=== PATIENT | male | born 1940 | race American Indian/Alaskan Native ===

== ENCOUNTER 2017-03-25 06:15 | Inpatient (IN) | payer OTHER ==
[2017-03-25 06:25] VITALS: BMI 32.3
--- NOTE | 2017-03-25 07:09 | PDOC ---
History of Present Illness - General Chief Complaint: Blood Sugar Problem Stated Complaint: LOW BLOOD SUGAR Time Seen by Provider: 03/25/17 07:09 - History of Present Illness Initial Comments: 03/25/17 07:11 Mr. Sorenson is a 76 yo male with pmh of DM, 1 cardiac stent, HTN, and hypercholesterolemia BIBA after he was noted by family to have snoring respirations this morning. attempted to wake him up but was unable to. Family took his blood sugar at home and noted it was 34. EMS was called and administered oral glucose - blood sugar was noted to be approximately 200 following this and patient was brought to the emergency room. Patient currently responding appropriately and at baseline per family - says that he feels fine and has no complaints. Patient takes insulin and sulfonylureas for his diabetes. The patient denies chest pain, shortness of breath, headache and dizziness. Denies fever, chills, nausea, vomit, diarrhea and constipation. Denies dysuria, frequency, urgency and hematuria. Allergies: NKDA Past History - Past Medical History Allergies/Adverse Reactions: Allergies Allergy/AdvReac Type Severity Reaction Status Date / Time No Known Allergies Allergy Verified 03/25/17 06:24 Home Medications: Ambulatory Orders Aspirin [ASA -] 81 mg PO DAILY 03/26/13 Atorvastatin Ca [Lipitor] 40 mg PO HS 03/26/13 Clopidogrel Bisulfate [Plavix -] 75 mg PO DAILY 03/26/13 Quinapril HCl [Accupril -] 20 mg PO DAILY 03/26/13 Cholecalciferol (Vitamin D3) [Vitamin D3 -] 1,000 unit PO DAILY 12/11/14 Cyanocobalamin [Vitamin B12 -] 100 mcg PO DAILY 12/11/14 Albuterol 2.5/Ipratropium 0.5 [Duoneb -] 1 amp NEB Q4H PRN #30 amp 12/15/14 Budesonide/Formeterol Fumarate [SYMBICORT 80/4.5mcg -] 2 puff IH BID #1 inhaler 12/15/14 Furosemide [Lasix -] 40 mg PO DAILY #30 tablet 12/15/14 Glimepiride [Amaryl -] 4 mg PO DAILY@0700 #30 tablet 12/15/14 Insulin (Novolog 70/30) [Novolog Mix 70/30 Flexpen -] 10 units SQ DAILY@1100 #1 pen 12/15/14 Insulin (Novolog 70/30) [Novolog Mix 70/30 Flexpen -] 30 units SQ ACBK #1 pen Insulin (Novolog 70/30) [Novolog Mix 70/30 Flexpen -] 30 units SQ ACDIN #1 pen 12/15/14 Metoprolol Tartrate [Lopressor -] 50 mg PO DAILY #30 tablet 12/15/14 Prednisone [Deltasone -] 40 mg PO DAILY #14 tablet 12/15/14 Quinapril HCl [Accupril -] 20 mg PO DAILY #30 tablet 12/15/14 Ranitidine HCl [Zantac] 150 mg PO DAILY #14 tablet 12/15/14 Cardiac Disorders: Yes (CAD) COPD: Yes Diabetes: Yes HTN: Yes Hypercholesterolemia: Yes - Surgical History Cardiac Surgery: Yes (STENT X 1) - Family Disease History Family Disease History: Diabetes: Mother - Immunization History Immunization Up to Date: Yes - Suicide/Smoking/Psychosocial Hx Smoking History: Unknown if ever smoked Have you smoked in the past 12 months: No Information on smoking cessation initiated: No Hx Alcohol Use: No Drug/Substance Use Hx: No Substance Use Type: None Hx Substance Use Treatment: No Review of Systems - Review of Systems Comments:: 03/25/17 07:40 GENERAL/CONSTITUTIONAL: No fever or chills. No weakness. HEAD, EYES, EARS, NOSE AND THROAT: No change in vision. No ear pain or discharge. No sore throat. CARDIOVASCULAR: No chest pain or shortness of breath RESPIRATORY: + Snoring respirations as described while sleeping. No cough, wheezing, or hemoptysis. GASTROINTESTINAL: No nausea, vomiting, diarrhea or constipation. GENITOURINARY: No dysuria, frequency, or change in urination. MUSCULOSKELETAL: No joint or muscle swelling or pain. No neck or back pain. SKIN: No rash NEUROLOGIC: No headache, vertigo, loss of consciousness, or change in strength/ sensation. ENDOCRINE: No increased thirst. No abnormal weight change HEMATOLOGIC/LYMPHATIC: No anemia, easy bleeding, or history of blood clots. ALLERGIC/IMMUNOLOGIC: No hives or skin allergy. 03/25/17 08:09 *Physical Exam - Vital Signs Last Vital Signs Temp Pulse Resp BP Pulse Ox 97.6 F 22 159/65 98 03/25/17 06:24 03/25/17 06:24 03/25/17 06:24 03/25/17 06:24 - Physical Exam Comments: 03/25/17 08:10 GENERAL: Awake, alert, and fully oriented, in no acute distress HEAD: No signs of trauma, normocephalic, atraumatic EYES: PERRLA, EOMI, sclera anicteric, conjunctiva clear ENT: Auricles normal inspection, hearing grossly normal, nares patent, oropharynx clear without exudates. Moist mucosa NECK: Normal ROM, supple, no lymphadenopathy, JVD, or masses LUNGS: No distress, speaks full sentences, clear to auscultation bilaterally HEART: Regular rate and rhythm, normal S1 and S2, no murmurs, rubs or gallops, peripheral pulses normal and equal bilaterally. ABDOMEN: Soft, nontender, normoactive bowel sounds. No guarding, no rebound. No masses EXTREMITIES: Normal inspection, Normal range of motion, no edema. No clubbing or cyanosis. NEUROLOGICAL: Cranial nerves II through XII grossly intact. Normal speech, normal gait, no focal sensorimotor deficits SKIN: Warm, Dry, normal turgor, no rashes or lesions noted. ED Treatment Course - LABORATORY CBC & Chemistry Diagram: 03/25/17 07:25 03/25/17 07:25 Medical Decision Making - Medical Decision Making 03/25/17 08:20 Patient is a diabetic who presents post hypoglycemic episode on sulfonylureas. Per family patient may have taken more insulin or skipped a meal last night - patient unable to confirm/deny. Patient currently resting comfortably but due to long acting nature of sulfonylureas will obs. patient to ensure no further hypoglycemic episodes. 03/25/17 09:[address] Rachel - will admit under Ann[facility]. 03/25/17 09:42 *DC/Admit/Observation/Transfer Diagnosis at time of Disposition: Hypoglycemia - Discharge Dispostion Admit: Yes - Referrals - Patient Instructions - Post Discharge Activity
[2017-03-25 07:37] LABS: VENOUS PH 7.29 (7.32-7.42)
[2017-03-25 07:38] LABS: VENOUS BLOOD GAS HCO3 32.3 meq/L (19-25)
[2017-03-25 07:38] LABS: URINE APPEARANCE CLEAR; URINE BILIRUBIN NEGATIVE (NEGATIVE); URINE BLOOD 1+ (NEGATIVE); URINE COLOR LTYELLOW; URINE GLUCOSE (UA) 2+ (NEGATIVE); URINE KETONE NEGATIVE (NEGATIVE); URINE NITRITE NEGATIVE (NEGATIVE); URINE UROBILINOGEN NEGATIVE mg/dL (0.2-1.0)
[2017-03-25 07:40] LABS: BASOPHIL 0.5 % (0-2.0); EOSINOPHIL 0.9 % (0-4.5); MCH 30.3 pg (25.7-33.7); MCHC 33.8 g/dl (32.0-35.9); MEAN CELL VOLUME 89.7 fl (80-96); MEAN PLT VOLUME 9.8 fl (7.5-11.1); NEUTROPHILS 83.4 % (42.8-82.8); PLATELET COUNT 166 K/MM3 (134-434); RDW 13.9 % (11.9-15.9); URINE PROTEIN 2+ (NEGATIVE); WHITE BLOOD COUNT 9.7 K/mm3 (4.0-10.0)
[2017-03-25 07:41] LABS: URINE BACTERIA RARE /hpf (NONE SEEN); URINE HYALINE CAST 6 /lpf; URINE MUCUS RARE; URINE RBC 3 /hpf (0-3); URINE WBC <1 /hpf (3-5)
[2017-03-25 08:13] LABS: ALBUMIN 3.8 g/dl (3.4-5.0); ANION GAP 7 (8-16); BILIRUBIN,TOTAL 0.4 mg/dL (0.2-1.0); CALCIUM 8.9 mg/dL (8.5-10.1); CO2 33 mmol/L (21-32); CREATININE 0.7 mg/dL (0.7-1.3); GLUCOSE,RANDOM 70 mg/dL (74-106); SGOT/AST 16 U/L (15-37); SGPT/ALT 22 U/L (12-78); TOT PROT 7.4 g/dl (6.4-8.2)
[2017-03-25 08:15] LABS: ALK PHOS 79 U/L (45-117); CPK 66 IU/L (39-308); TROPONIN I < 0.02 ng/ml (0.00-0.05)
--- NOTE | 2017-03-25 08:42 | PDOC ---
Attending Attestation - HPI HPI: 03/25/17 08:45 Pt is a 76 yo M with a PMHx of CAD (s/p stents), HTN, HLD, IDDM who presents to the ED for evaluation of low blood glucose. Per patients family, patient abruptly woke up from sleep with unusual snoring noise and abnormal respirations. Patients family was concerned for his breathing. Patient was brought to the ED for further evaluation. Patients family reports recent and frequent fluctuations with his blood glucose levels. As per EMS, patients BG was 34 and administered 1 amp of IV Dextrose. Upon arrival to the ED, patients BG was 200. - Physicial Exam PE: 03/25/17 08:45 Vitals: Triage Vital signs reviewed General Appearance: no acute distress, well nourished well developed, Head: Atraumatic, normocephalic Neck: Supple;No Nuchal rigidity Chest Wall: Nontender Cardiac: Regular rate and rhythm, no murmurs, no rubs, no gallops, Lungs: Clear to auscultation bilateral, good air movement bilaterally, Abdomen: Soft, nondistended, normal bowel sounds, nontender to palpation Extremities: Full range of motion to all extremities, no cyanosis, clubbing, or edema Skin: Warm and dry, no rashes or lesions, no petechiae - Medical Decision Making 03/25/17 08:[address] Sarabia via phone answering service. Awaiting call back Call returned from [facility] and the patient's case was discussed. 03/25/[address] Roberts paged. Awaiting call back. 03/25/[address] Rachel grease monkey. Awaiting call back. 03/25/[address] Rachel responded to the page and the patient's case was discussed. Documentation prepared by Sophie Melvin, acting as medical practice administrator for Eleazar Haque MD, MD/DO. <Sophie Melvin - Last Filed: 03/25/17 10:44> - ED Attending Attestation I have performed the following: I have examined & evaluated the patient, The case was reviewed & discussed with the resident, I agree w/resident's findings & plan, Exceptions are as noted - Medical Decision Making 03/25/17 15:50 Emergency department with evidence of hypoglycemia. Labs within normal limits. Given that patient is on long-acting sulfonylurea will observe overnight. Patient's primary care provider aware <Eleazar Haque - Last Filed: 03/25/17 15:51>
--- NOTE | 2017-03-25 09:23 | EKG ---
Test Reason : Blood Pressure : / mmHG Vent. Rate : 083 BPM Atrial Rate : 083 BPM P-R Int : 138 ms QRS Dur : 094 ms QT Int : 400 ms P-R-T Axes : 064 020 087 degrees QTc Int : 470 ms SINUS RHYTHM WITH OCCASIONAL PREMATURE VENTRICULAR COMPLEXES NONSPECIFIC T WAVE ABNORMALITY PROLONGED QT ABNORMAL ECG WHEN COMPARED WITH ECG OF 11-DEC-2014 12:02, PREMATURE VENTRICULAR COMPLEXES ARE NOW PRESENT QT HAS LENGTHENED Confirmed by CEDRICK AGUILA, BEAR ([id number]) on 03/25/2017 9:23:29 AM Referred By: Confirmed By:BEAR PHILIP MD
[2017-03-25] MEDS ORDERED: ACETAMINOPHEN 325 MG TABLET (FP) PO PRN (13:37)
[2017-03-25] MEDS ORDERED: ALBUTEROL SO4 2.5/IPRATROPIUM 0.5 INH SOL 3 ML VIAL.NEB. NEB PRN (13:37)
--- NOTE | 2017-03-25 13:40 | HP ---
Admitting History and Physical - Primary Care Physician PCP: Gogo Roberts - Admission History of Present Illness: Mr. Sorenson is a 76 yo male with pmh of DM, 1 cardiac stent, HTN, and hypercholesterolemia BIBA after he was noted by family to have snoring respirations this morning. attempted to wake him up but was unable to. Family took his blood sugar at home and noted it was 34. EMS was called and administered oral glucose - blood sugar was noted to be approximately 200 following this and patient was brought to the emergency room. Patient currently responding appropriately and at baseline per family - says that he feels fine and has no complaints. Patient takes insulin and sulfonylureas for his diabetes. History Source: Patient, Medical Record Limitations to Obtaining History: Physical Impairment - Past Medical History Cardiovascular: Yes: CHF Pulmonary: Yes: Bronchitis, COPD, Pneumonia Gastrointestinal: Yes: Constipation - Smoking History Smoking history: Unknown if ever smoked Have you smoked in the past 12 months: No - Alcohol/Substance Use Hx Alcohol Use: No Home Medications - Allergies Allergies/Adverse Reactions: Allergies Allergy/AdvReac Type Severity Reaction Status Date / Time No Known Allergies Allergy Verified 03/25/17 06:24 - Home Medications Home Medications: Ambulatory Orders Aspirin [ASA -] 81 mg PO DAILY 03/26/13 Atorvastatin Ca [Lipitor] 40 mg PO HS 03/26/13 Clopidogrel Bisulfate [Plavix -] 75 mg PO DAILY 03/26/13 Quinapril HCl [Accupril -] 20 mg PO DAILY 03/26/13 Cholecalciferol (Vitamin D3) [Vitamin D3 -] 1,000 unit PO DAILY 12/11/14 Cyanocobalamin [Vitamin B12 -] 100 mcg PO DAILY 12/11/14 Albuterol 2.5/Ipratropium 0.5 [Duoneb -] 1 amp NEB Q4H PRN #30 amp 12/15/14 Budesonide/Formeterol Fumarate [SYMBICORT 80/4.5mcg -] 2 puff IH BID #1 inhaler 12/15/14 Furosemide [Lasix -] 40 mg PO DAILY #30 tablet 12/15/14 Glimepiride [Amaryl -] 4 mg PO DAILY@0700 #30 tablet 12/15/14 Insulin (Novolog 70/30) [Novolog Mix 70/30 Flexpen -] 10 units SQ DAILY@1100 #1 pen 12/15/14 Insulin (Novolog 70/30) [Novolog Mix 70/30 Flexpen -] 30 units SQ ACBK #1 pen Insulin (Novolog 70/30) [Novolog Mix 70/30 Flexpen -] 30 units SQ ACDIN #1 pen 12/15/14 Metoprolol Tartrate [Lopressor -] 50 mg PO DAILY #30 tablet 12/15/14 Prednisone [Deltasone -] 40 mg PO DAILY #14 tablet 12/15/14 Quinapril HCl [Accupril -] 20 mg PO DAILY #30 tablet 12/15/14 Ranitidine HCl [Zantac] 150 mg PO DAILY #14 tablet 12/15/14 Family Disease History - Family Disease History Family Disease History: Diabetes: Brother Review of Systems - Review of Systems Constitutional: reports: Weakness Eyes: reports: No Symptoms HENT: reports: Hearing Loss Neck: reports: No Symptoms Cardiovascular: reports: No Symptoms Respiratory: reports: No Symptoms Gastrointestinal: reports: No Symptoms Genitourinary: reports: No Symptoms Musculoskeletal: reports: No Symptoms Integumentary: reports: No Symptoms Neurological: reports: No Symptoms Endocrine: reports: No Symptoms Hematology/Lymphatic: reports: No Symptoms Psychiatric: reports: No Symptoms Physical Examination Vital Signs: Vital Signs Temperature 97.6 F 03/25/17 06:24 Pulse Rate 84 03/25/17 11:00 Respiratory Rate 18 03/25/17 12:00 Blood Pressure 154/84 03/25/17 11:00 O2 Sat by Pulse Oximetry (%) 97 03/25/17 12:00 Constitutional: Yes: Mild Distress Eyes: Yes: WNL HENT: Yes: WNL Neck: Yes: WNL Cardiovascular: Yes: WNL Respiratory: Yes: WNL Gastrointestinal: Yes: WNL Renal/: Yes: WNL Musculoskeletal: Yes: WNL Extremities: Yes: WNL Edema: No Peripheral Pulses WNL: Yes Integumentary: Yes: WNL Wound/Incision: Yes: Clean/Dry Neurological: Yes: WNL ...Motor Strength: WNL Psychiatric: Yes: WNL Labs: CBC, BMP 03/25/17 07:25 03/25/17 07:25 Imaging - Results Chest X-ray: Report Reviewed Problem List - Problems (1) Hypoglycemia Code(s): E16.2 - HYPOGLYCEMIA, UNSPECIFIED (2) COPD exacerbation Code(s): J44.1 - CHRONIC OBSTRUCTIVE PULMONARY DISEASE W (ACUTE) EXACERBATION (3) Diabetes mellitus, insulin dependent (IDDM), uncontrolled Code(s): E10.65 - TYPE 1 DIABETES MELLITUS WITH HYPERGLYCEMIA Qualifiers: Chronic kidney disease stage: unspecified stage (4) Dyspnea on exertion Code(s): R06.09 - OTHER FORMS OF DYSPNEA Assessment/Plan BGM CHECKS ENDOCRINE CONSULT PULMONARY EVAL MEDICATIOSN RESTARTED DIABETIC DIET ADA SSI BGM
[2017-03-25] MEDS ORDERED: ATORVASTATIN CA 20 MG TABLET (FP) PO SCH (13:45)
[2017-03-25] MEDS: INSULIN (NOVOLOG MIX 70/30) 100 UNITS/ML MDV SQ SCH ×2 (15:06→16:57)
[2017-03-25] MEDS: INSULIN SLIDING SCALE (NOVOLOG) 1 VIAL SQ SCH ×3 (15:07→21:01)
[2017-03-25] MEDS: GLIMEPIRIDE 4 MG TABLET (FP) PO SCH (15:07)
[2017-03-25] MEDS: ATORVASTATIN CA 40 MG TABLET (FP) PO SCH ×2 (15:07→21:01)
[2017-03-25 15:25] LABS: URINE LEUK ESTERASE Negative (NEGATIVE)
--- NOTE | 2017-03-25 19:48 | CON.CARD ---
Consult Consult Specialty:: Cardiology Referred by:: Dr. Rachel Reason for Consultation:: LOC, likely due to hypoglycemia - History of Present Illness Chief Complaint: Altered mental status History of Present Illness: 76 year-old man with a PMHx of HTN, DM, CAD, s/p PCI/stent, COPD and hypercholesterolemia admitted 03/25/2017 with altered mental status. The patient was noted by his family member to have snoring respirations and unable to wake him up. He was found to have blood sugar of 34 at home. EMS was called and administered oral glucose - blood sugar was noted to be approximately 200. Patient takes insulin and sulfonylureas for his diabetes. He has been stable since admission without recurrent altered mental status. He reports no recent chest pain, SOB, palpitation, dizziness, edema, orthopnea or PND. - History Source History Provided By: Patient Limitations to Obtaining History: No Limitations - Past Medical History Cardio/Vascular: Yes: CHF Pulmonary: Yes: Bronchitis, COPD, Pneumonia Gastrointestinal: Yes: Constipation - Alcohol/Substance Use Hx Alcohol Use: No - Smoking History Smoking history: Unknown if ever smoked Have you smoked in the past 12 months: No Home Medications - Allergies Allergies/Adverse Reactions: Allergies Allergy/AdvReac Type Severity Reaction Status Date / Time No Known Allergies Allergy Verified 03/25/17 06:24 - Home Medications Home Medications: Ambulatory Orders Aspirin [ASA -] 81 mg PO DAILY 03/26/13 Atorvastatin Ca [Lipitor] 40 mg PO HS 03/26/13 Clopidogrel Bisulfate [Plavix -] 75 mg PO DAILY 03/26/13 Quinapril HCl [Accupril -] 20 mg PO DAILY 03/26/13 Cholecalciferol (Vitamin D3) [Vitamin D3 -] 1,000 unit PO DAILY 12/11/14 Cyanocobalamin [Vitamin B12 -] 100 mcg PO DAILY 12/11/14 Albuterol 2.5/Ipratropium 0.5 [Duoneb -] 1 amp NEB Q4H PRN #30 amp 12/15/14 Budesonide/Formeterol Fumarate [SYMBICORT 80/4.5mcg -] 2 puff IH BID #1 inhaler 12/15/14 Furosemide [Lasix -] 40 mg PO DAILY #30 tablet 12/15/14 Glimepiride [Amaryl -] 4 mg PO DAILY@0700 #30 tablet 12/15/14 Insulin (Novolog 70/30) [Novolog Mix 70/30 Flexpen -] 10 units SQ DAILY@1100 #1 pen 12/15/14 Insulin (Novolog 70/30) [Novolog Mix 70/30 Flexpen -] 30 units SQ ACBK #1 pen Insulin (Novolog 70/30) [Novolog Mix 70/30 Flexpen -] 30 units SQ ACDIN #1 pen 12/15/14 Metoprolol Tartrate [Lopressor -] 50 mg PO DAILY #30 tablet 12/15/14 Prednisone [Deltasone -] 40 mg PO DAILY #14 tablet 12/15/14 Quinapril HCl [Accupril -] 20 mg PO DAILY #30 tablet 12/15/14 Ranitidine HCl [Zantac] 150 mg PO DAILY #14 tablet 12/15/14 Family Disease History - Family Disease History Family Disease History: Diabetes: Brother Vital Signs: Vital Signs Temperature 98.0 F 03/25/17 15:20 Pulse Rate 84 03/25/17 15:20 Respiratory Rate 20 03/25/17 15:20 Blood Pressure 134/67 03/25/17 15:20 O2 Sat by Pulse Oximetry (%) 97 03/25/17 12:00 - Other Data Labs, Other Data: CBC, BMP 03/25/17 07:25 03/25/17 07:25 Troponin, BNP 03/25/17 07:25 Troponin I < 0.02 Troponin, BNP 03/25/17 07:25 Troponin I < 0.02 Assessment/Plan 76 year-old man with a PMHx of HTN, DM, CAD, s/p PCI/stent, COPD and hypercholesterolemia admitted 03/25/2017 with altered mental status with evidence of severe hypoglycemia. The patient has been stable from cardiac stand point. He has no symptoms of recurrent angina or CHF. 1) Altered mental status secondary to severe hypoglycemia. Monitor FS and adjust diabetic regimen to prevent recurrent hypoglycemia. 2) CAD, s/p PCI/stent in the past. Stable without recurrent angina. Continue Aspirin, Plavix, Metoprolol and atorvastatin. 3) HTN: BP well control with current Metoprolol and quinapril. We will see the patient as needed. Please call us for reconsult. Thank you!
[2017-03-25] MEDS ORDERED: INSULIN (NOVOLOG) ASPART 100 UNITS/ML 10ML VIAL ONE (20:57)
[2017-03-25] MEDS: RANITIDINE HCL 150 MG TABLET (FP) PO SCH (21:01)
[2017-03-25] MEDS: BUDESONIDE/FORMETEROL FUMARATE 80/4.5 mcg INHALER IH SCH (21:02)
--- NOTE | 2017-03-26 00:07 | CONSULT ---
Consult Consult Specialty:: endocrine Referred by:: dr.rabadi salvador Reason for Consultation:: diabetes mellitus - History of Present Illness Chief Complaint: low sugar History of Present Illness: 76 yo M with a PMHx of CAD (s/p stents), HTN, HLD, IDDM who presents to the ED for evaluation of low blood glucose. Per patients family, patient abruptly woke up from sleep with unusual snoring noise and abnormal respirations. Patients bs was 34 by fs,brought to ed for evaluation,he states not having big appetite and yet not checking sugars frequently - History Source History Provided By: Patient - Past Medical History Cardio/Vascular: Yes: CHF Pulmonary: Yes: Bronchitis, COPD, Pneumonia Gastrointestinal: Yes: Constipation - Alcohol/Substance Use Hx Alcohol Use: No - Smoking History Smoking history: Unknown if ever smoked Have you smoked in the past 12 months: No Home Medications - Allergies Allergies/Adverse Reactions: Allergies Allergy/AdvReac Type Severity Reaction Status Date / Time No Known Allergies Allergy Verified 03/25/17 06:24 - Home Medications Home Medications: Ambulatory Orders Aspirin [ASA -] 81 mg PO DAILY 03/26/13 Atorvastatin Ca [Lipitor] 40 mg PO HS 03/26/13 Clopidogrel Bisulfate [Plavix -] 75 mg PO DAILY 03/26/13 Quinapril HCl [Accupril -] 20 mg PO DAILY 03/26/13 Cholecalciferol (Vitamin D3) [Vitamin D3 -] 1,000 unit PO DAILY 12/11/14 Cyanocobalamin [Vitamin B12 -] 100 mcg PO DAILY 12/11/14 Albuterol 2.5/Ipratropium 0.5 [Duoneb -] 1 amp NEB Q4H PRN #30 amp 12/15/14 Budesonide/Formeterol Fumarate [SYMBICORT 80/4.5mcg -] 2 puff IH BID #1 inhaler 12/15/14 Furosemide [Lasix -] 40 mg PO DAILY #30 tablet 12/15/14 Glimepiride [Amaryl -] 4 mg PO DAILY@0700 #30 tablet 12/15/14 Insulin (Novolog 70/30) [Novolog Mix 70/30 Flexpen -] 10 units SQ DAILY@1100 #1 pen 12/15/14 Insulin (Novolog 70/30) [Novolog Mix 70/30 Flexpen -] 30 units SQ ACBK #1 pen Insulin (Novolog 70/30) [Novolog Mix 70/30 Flexpen -] 30 units SQ ACDIN #1 pen 12/15/14 Metoprolol Tartrate [Lopressor -] 50 mg PO DAILY #30 tablet 12/15/14 Prednisone [Deltasone -] 40 mg PO DAILY #14 tablet 12/15/14 Quinapril HCl [Accupril -] 20 mg PO DAILY #30 tablet 12/15/14 Ranitidine HCl [Zantac] 150 mg PO DAILY #14 tablet 12/15/14 Family Disease History - Family Disease History Family Disease History: Diabetes: Brother Review of Systems - Review of Systems Constitutional: reports: Lethargy Eyes: reports: Blurred Vision HENT: reports: No Symptoms Neck: reports: Decreased ROM Cardiovascular: reports: Shortness of Breath Respiratory: reports: Exercise Intolerance, SOB on Exertion Gastrointestinal: reports: Constipation Genitourinary: reports: No Symptoms Breasts: reports: No Symptoms Reported Musculoskeletal: reports: Decreased ROM Integumentary: reports: No Symptoms Neurological: reports: Weakness Endocrine: reports: No Symptoms Hematology/Lymphatic: reports: No Symptoms Physical Exam Vital Signs: Vital Signs Temperature 98.1 F 03/25/17 18:00 Pulse Rate 80 03/25/17 18:00 Respiratory Rate 20 03/25/17 20:41 Blood Pressure 140/77 03/25/17 18:00 O2 Sat by Pulse Oximetry (%) 98 03/25/17 20:41 Constitutional: Yes: Anxious Eyes: Yes: EOM Intact HENT: Yes: Normocephalic Neck: Yes: Trachea Midline Cardiovascular: Yes: Regular Rate and Rhythm Respiratory: Yes: CTA Bilaterally Gastrointestinal: Yes: Normal Bowel Sounds ...Rectal Exam: Yes: Deferred Renal/: Yes: WNL Breast(s): Yes: WNL Musculoskeletal: Yes: WNL Extremities: Yes: WNL Neurological: Yes: Alert, Oriented Labs: CBC, BMP 03/25/17 07:25 03/25/17 07:25 Problem List - Problems (1) Hypoglycemia Code(s): E16.2 - HYPOGLYCEMIA, UNSPECIFIED (2) COPD exacerbation Code(s): J44.1 - CHRONIC OBSTRUCTIVE PULMONARY DISEASE W (ACUTE) EXACERBATION (3) Diabetes mellitus, insulin dependent (IDDM), uncontrolled Code(s): E10.65 - TYPE 1 DIABETES MELLITUS WITH HYPERGLYCEMIA Qualifiers: Chronic kidney disease stage: unspecified stage (4) Dyspnea on exertion Code(s): R06.09 - OTHER FORMS OF DYSPNEA (5) Exercise hypoxemia Code(s): R09.02 - HYPOXEMIA (6) Leg edema Code(s): R60.0 - LOCALIZED EDEMA Assessment/Plan Current Active Problems Hypoglycemia (Acute) diabetes mellitus ckd htn ashd diabetic neuropathy Abnormal Lab Results 03/25/17 03/25/17 03/25/17 07:20 07:25 07:25 Neutrophils % 83.4 H VBG pH 7.29 L POC VBG pCO2 69.0 H* POC VBG pO2 22.7 L Mixed VBG HCO3 32.3 H Carbon Dioxide Anion Gap Random Glucose Urine Protein 2+ H Urine Glucose (UA) 2+ H Urine Blood 1+ H 03/25/17 07:25 Neutrophils % VBG pH POC VBG pCO2 POC VBG pO2 Mixed VBG HCO3 Carbon Dioxide 33 H Anion Gap 7 L Random Glucose 70 L Urine Protein Urine Glucose (UA) Urine Blood Laboratory Results - last 24 hr 03/25/17 03/25/17 03/25/17 07:20 07:25 07:25 WBC 9.7 D RBC 4.70 Hgb 14.2 Hct 42.1 MCV 89.7 MCH 30.3 MCHC 33.8 RDW 13.9 Plt Count 166 MPV 9.8 Neutrophils % 83.4 H Lymphocytes % 8.3 D Monocytes % 6.9 Eosinophils % 0.9 Basophils % 0.5 VBG pH 7.29 L POC VBG pCO2 69.0 H* POC VBG pO2 22.7 L Mixed VBG HCO3 32.3 H Sodium Potassium Chloride Carbon Dioxide Anion Gap BUN Creatinine Creat Clearance w eGFR POC Glucometer Random Glucose Calcium Total Bilirubin AST ALT Alkaline Phosphatase Creatine Kinase Troponin I Total Protein Albumin Urine Color Ltyellow Urine Appearance Clear Urine pH 5.0 Ur Specific [place] 1.016 Urine Protein 2+ H Urine Glucose (UA) 2+ H Urine Ketones Negative Urine Blood 1+ H Urine Nitrite Negative Urine Bilirubin Negative Urine Urobilinogen Negative Ur Leukocyte Esterase Negative Urine WBC (Auto) <1 Urine RBC (Auto) 3 Urine Bacteria Rare Hyaline Casts 6 Urine Mucus Rare 03/25/17 03/25/17 03/25/17 07:25 11:20 15:01 WBC RBC Hgb Hct MCV MCH MCHC RDW Plt Count MPV Neutrophils % Lymphocytes % Monocytes % Eosinophils % Basophils % VBG pH POC VBG pCO2 POC VBG pO2 Mixed VBG HCO3 Sodium 140 Potassium 4.4 Chloride 100 Carbon Dioxide 33 H Anion Gap 7 L BUN 15 Creatinine 0.7 Creat Clearance w eGFR > 60 POC Glucometer 153 208 Random Glucose 70 L Calcium 8.9 Total Bilirubin 0.4 AST 16 ALT 22 Alkaline Phosphatase 79 Creatine Kinase 66 Troponin I < 0.02 Total Protein 7.4 Albumin 3.8 Urine Color Urine Appearance Urine pH Ur Specific [place] Urine Protein Urine Glucose (UA) Urine Ketones Urine Blood Urine Nitrite Urine Bilirubin Urine Urobilinogen Ur Leukocyte Esterase Urine WBC (Auto) Urine RBC (Auto) Urine Bacteria Hyaline Casts Urine Mucus 03/25/17 03/25/17 16:17 20:52 WBC RBC Hgb Hct MCV MCH MCHC RDW Plt Count MPV Neutrophils % Lymphocytes % Monocytes % Eosinophils % Basophils % VBG pH POC VBG pCO2 POC VBG pO2 Mixed VBG HCO3 Sodium Potassium Chloride Carbon Dioxide Anion Gap BUN Creatinine Creat Clearance w eGFR POC Glucometer 190 238 Random Glucose Calcium Total Bilirubin AST ALT Alkaline Phosphatase Creatine Kinase Troponin I Total Protein Albumin Urine Color Urine Appearance Urine pH Ur Specific [place] Urine Protein Urine Glucose (UA) Urine Ketones Urine Blood Urine Nitrite Urine Bilirubin Urine Urobilinogen Ur Leukocyte Esterase Urine WBC (Auto) Urine RBC (Auto) Urine Bacteria Hyaline Casts Urine Mucus plan: bgm qid novolog insulin coverage novolog 70/30 15 units bid dc sulfonylurea ck [id number]
[2017-03-26] MEDS: INSULIN SLIDING SCALE (NOVOLOG) 1 VIAL SQ SCH ×4 (06:04→21:54)
[2017-03-26] MEDS: INSULIN (NOVOLOG MIX 70/30) 100 UNITS/ML MDV SQ SCH ×2 (06:30→17:29)
[2017-03-26] MEDS: GLIMEPIRIDE 4 MG TABLET (FP) PO SCH (06:30)
[2017-03-26 08:31] LABS: MCH 30.3 pg (25.7-33.7); MCHC 33.9 g/dl (32.0-35.9); MEAN CELL VOLUME 89.3 fl (80-96); MEAN PLT VOLUME 10.8 fl (7.5-11.1); PLATELET COUNT 152 K/MM3 (134-434); RDW 14.1 % (11.9-15.9); WHITE BLOOD COUNT 5.6 K/mm3 (4.0-10.0)
--- NOTE | 2017-03-26 08:36 | EKG ---
Test Reason : Blood Pressure : / mmHG Vent. Rate : 080 BPM Atrial Rate : 080 BPM P-R Int : 162 ms QRS Dur : 088 ms QT Int : 382 ms P-R-T Axes : 045 -07 095 degrees QTc Int : 440 ms NORMAL SINUS RHYTHM ABNORMAL QRS-T ANGLE, CONSIDER PRIMARY T WAVE ABNORMALITY ABNORMAL ECG WHEN COMPARED WITH ECG OF 25-MAR-2017 06:37, PREMATURE VENTRICULAR COMPLEXES ARE NO LONGER PRESENT Confirmed by CEDRICK AGUILA, BEAR ([id number]) on 03/26/2017 8:35:39 AM Referred By: Lien GARCIA Confirmed By:BEAR PHILIP MD
[2017-03-26 10:29] LABS: ALBUMIN 3.2 g/dl (3.4-5.0); ANION GAP 8 (8-16); CALCIUM 8.2 mg/dL (8.5-10.1); CHOLESTEROL 149 mg/dL (50-200); CO2 29 mmol/L (21-32); CREATININE 0.8 mg/dL (0.7-1.3); GLUCOSE,RANDOM 166 mg/dL (74-106); SGOT/AST 14 U/L (15-37); SGPT/ALT 18 U/L (12-78)
[2017-03-26] MEDS: BUDESONIDE/FORMETEROL FUMARATE 80/4.5 mcg INHALER IH SCH ×2 (10:29→21:53)
[2017-03-26] MEDS: FUROSEMIDE 40 MG TABLET (FP) PO SCH (10:29)
[2017-03-26] MEDS: ASPIRIN COATED 81 MG TABLET.EC PO SCH (10:29)
[2017-03-26] MEDS: METOPROLOL TARTRATE 50 MG TABLET (FP) PO SCH (10:29)
[2017-03-26] MEDS: RANITIDINE HCL 150 MG TABLET (FP) PO SCH ×2 (10:29→21:53)
[2017-03-26] MEDS: CLOPIDOGREL BISULFATE 75 MG TABLET (FP) PO SCH (10:29)
[2017-03-26 10:30] LABS: BILIRUBIN,TOTAL 0.5 mg/dL (0.2-1.0); TOT PROT 6.3 g/dl (6.4-8.2)
[2017-03-26 10:31] LABS: ALK PHOS 68 U/L (45-117)
--- NOTE | 2017-03-26 11:50 | PN ---
Progress Note, Physician Chief Complaint: FAMILY BEDSIDE THEY REPORT THEIR DAD HAS HAD MEMORY LOSS, ALTERED MENTAL STATUS WITH HYPOGLYCEMIC EPISODES INCREASING. - Current Medication List Current Medications: Active Medications Acetaminophen (Tylenol -) 650 mg PO Q6H PRN PRN Reason: FEVER OR PAIN Albuterol/Ipratropium (Duoneb -) 1 amp NEB Q6H PRN PRN Reason: SHORTNESS OF BREATH Aspirin (Ecotrin -) 81 mg PO DAILY [facility] Last Admin: 03/26/17 10:29 Dose: 81 mg Atorvastatin Calcium (Lipitor -) 40 mg PO HS [facility] Last Admin: 03/25/17 21:01 Dose: 40 mg Budesonide/Formoterol Fumarate (Symbicort 80/4.5mcg -) 2 puff IH BID [facility] Last Admin: 03/26/17 10:29 Dose: 2 puff Clopidogrel Bisulfate (Plavix -) 75 mg PO DAILY [facility] Last Admin: 03/26/17 10:29 Dose: 75 mg Furosemide (Lasix -) 40 mg PO DAILY [facility] Last Admin: 03/26/17 10:29 Dose: 40 mg Glimepiride (Amaryl -) 4 mg PO DAILY@0700 [facility] Last Admin: 03/26/17 06:30 Dose: 4 mg Insulin Aspart (Novolog Mix 70/30 Vial) 15 units SQ BIDAC [facility] Last Admin: 03/26/17 06:30 Dose: 15 units Insulin Aspart (Novolog Vial Sliding Scale -) 1 vial SQ ACHS [facility] PRN Reason: Protocol Last Admin: 03/26/17 06:04 Dose: Not Given Metoprolol Tartrate (Lopressor -) 50 mg PO DAILY [facility] Last Admin: 03/26/17 10:29 Dose: 50 mg Quinapril HCl (Accupril -) 10 mg PO DAILY [facility] Ranitidine HCl (Zantac -) 150 mg PO BID [facility] Last Admin: 03/26/17 10:29 Dose: 150 mg - Objective Vital Signs: Vital Signs Temperature 98.3 F 03/26/17 06:00 Pulse Rate 74 03/26/17 06:00 Respiratory Rate 18 03/26/17 06:00 Blood Pressure 150/94 03/26/17 06:00 O2 Sat by Pulse Oximetry (%) 98 03/25/17 20:41 Constitutional: Yes: Mild Distress Eyes: Yes: WNL HENT: Yes: WNL Neck: Yes: WNL Cardiovascular: Yes: WNL Respiratory: Yes: WNL Gastrointestinal: Yes: WNL Genitourinary: Yes: WNL Musculoskeletal: Yes: Muscle Weakness Extremities: Yes: WNL Edema: Yes Edema: LLE: Trace, RLE: Trace Peripheral Pulses WNL: Yes Integumentary: Yes: WNL Wound/Incision: Yes: Clean/Dry Neurological: Yes: Confusion, Pre-Existing Deficit ...Motor Strength: LLE, RLE Psychiatric: Yes: Other Labs: CBC, BMP 03/26/17 07:00 03/26/17 07:00 Problem List - Problems (1) Hypoglycemia Code(s): E16.2 - HYPOGLYCEMIA, UNSPECIFIED (2) COPD exacerbation Code(s): J44.1 - CHRONIC OBSTRUCTIVE PULMONARY DISEASE W (ACUTE) EXACERBATION (3) Diabetes mellitus, insulin dependent (IDDM), uncontrolled Code(s): E10.65 - TYPE 1 DIABETES MELLITUS WITH HYPERGLYCEMIA Qualifiers: Chronic kidney disease stage: unspecified stage (4) Dyspnea on exertion Code(s): R06.09 - OTHER FORMS OF DYSPNEA Assessment/Plan BGM CHECKS ENDOCRINE CONSULT PULMONARY EVAL MEDICATION RESTARTED DIABETIC DIET ADA SSI BGM MRI BRAIN TO ASSES ALTERED MENTAL STATUS QUESTION IF PATIENT IS TAKING HIS MEDICATIONS CORRECTLY AT HOME? SHOULD HAVE HOME HEALTH AID TO ASSIST WITH MEDS
[2017-03-26] MEDS: QUINAPRIL HCL 10 MG TABLET (FP) PO SCH (14:15)
--- NOTE | 2017-03-26 15:45 | PN ---
Progress Note (short form) - Note Progress Note: PULMONARY CONSULTATION DICTATED 03/26/17 IMP ACUTE HYPERCAPNEIC RESPIRATORY FAILURE HYPOGLYCEMIA COPD ASHD OBESITY LIKELY OSAS PLAN INHALED BRONCHODILATORS O2 PRN MONITOR BLOOD SUGARS SLEEP SCREEN DR CONTE Problem List - Problems (1) Acute hypercapnic respiratory failure Code(s): J96.02 - ACUTE RESPIRATORY FAILURE WITH HYPERCAPNIA (2) Hypoglycemia Code(s): E16.2 - HYPOGLYCEMIA, UNSPECIFIED (3) COPD exacerbation Code(s): J44.1 - CHRONIC OBSTRUCTIVE PULMONARY DISEASE W (ACUTE) EXACERBATION (4) Diabetes mellitus, insulin dependent (IDDM), uncontrolled Code(s): E10.65 - TYPE 1 DIABETES MELLITUS WITH HYPERGLYCEMIA Qualifiers: Chronic kidney disease stage: unspecified stage
[2017-03-26 16:09] LABS: ARTERIAL BLD GAS O2 SATURATION 89.4 % (90-98.9); ARTERIAL BLOOD GAS BASE EXCESS 5.4 meq/l (-2-2); ARTERIAL BLOOD GAS HCO3 30.5 meq/L (22-26); ARTERIAL BLOOD GAS PO2 62.2 mmHg (70-100); ARTERIAL BLOOD GAS pH 7.42 (7.35-7.45)
[2017-03-26 16:11] LABS: ALLENS TEST POSITIVE; ART PUNCT SITE RIGHT RADIAL; PT. ON O2? ROOM AIR
--- NOTE | 2017-03-26 16:12 | CONSULT ---
Consult - text type - Consultation Consultation Note: NEUROLOGY CONSULTATION is greatly appreciated: This 76 yo RH m man with a long h/o DM (>15 yrs), HTN, Chol, ASHD, S/P stent is maintained on atorvastatin, clopidogrel, quinipril, furosamide, insulins, metoprolol and ranitidine. Was found in bed this AM, difficult to arouse with stertorous respirations and Blood glucose of 34 mg%. Now feels "tired" but "back to normal." MRI of brain (reviewed): moderate atdrophy, moderate ventriculomegally (ex vacuo ) with scattered microvascular changes including a right paramedian pontine lacunar infarction. YSABEL: No bruits. Cor reg. NEURO: Awake, alert, Ox 3. Fluent speech CN II-XII: Normal Motor: No drift or tremor. Normal strength. Areflexic in the legs. Toes downgoing. Coord: No FTN dystaxia Sensory: Decreased vib both feet. Romberg +/- Gait: Sl wide-based and sl shortened strides. IMP: 1. Non-focal exam 2. Diabetic peripheral neuropathy 3. Toxic-metabolic (hypoglycemic) encephalopathy. 4. ONLINE PUBLISHER microvascular disease SUGGEST: Continue plavix. Check B12, ESR, CRP. R/O occult infection. Thank you very much, Deion Lenz MD
--- NOTE | 2017-03-26 18:25 | CONS ---
DATE OF CONSULTATION: 03/26/2017 REFERRING PHYSICIAN: Marsha Rachel MD The patient is a 76-year-old male, past medical of diabetes mellitus, ASHD status post stent, hypertension, COPD, hypercholesterolemia, admitted to [facility] secondary to hypoglycemia. The patient was brought in by ambulance after his family noted the patient to have snoring respirations and poorly responsive. They took his blood sugars at home and it was 34. EMS was called, administered glucose, with good clinical response. Patient currently was admitted for further evaluation. On admission, the patient denied any complaints of chest pain, shortness of breath, cough, or hemoptysis. He denies any fevers, chills, weight loss or night sweats. There is no history of recent travel. He is a nonsmoker. There is no history of occupational exposure to chemicals or fumes. Past medical history, again, includes COPD, pneumonia, CHF, ASHD, hypertension, diabetes. REVIEW OF SYSTEMS: No orthopnea, no PND, no chest pain or palpitation. Positive weakness. No fevers, no chills. No shortness of breath. No abdominal pain or lower extremity edema. Current medications include Symbicort 80/4.5, Tylenol, Accupril, DuoNeb, Lopressor, Zantac, Lipitor, NovoLog, Lasix, Ecotrin, Plavix, and Amaryl. PHYSICAL EXAMINATION: General: The patient is an obese male, awake, alert, in no acute distress. Vital Signs: He is afebrile. Blood pressure is 134/59. Respiratory rate 18. O2 saturation is 98% on room air. HEENT: Normocephalic, atraumatic. Neck: Supple. Heart: Regular, S1, S2. Chest: Clear. Abdomen: Soft. Bowel sounds are positive. Extremities: No cyanosis, edema. WBC is 5.6, hemoglobin 13.4, hematocrit 39.4, platelet count of 152,000. Blood gas on admission 7.29, pCO2 of 69, bicarbonate 22, saturation 32. That was the venous blood gas. BUN 14, creatinine 0.8. Hemoglobin A1c is 8.1. Chest x-ray revealed no infiltrates, no effusions. IMPRESSION: 1. Acute hypercapnia, most likely secondary to severe hypoglycemia. 2. Chronic obstructive pulmonary disease, clinically stable. 3. Arteriosclerotic heart disease, stable. 4. Diabetes. 5. Hypoglycemia. 6. Likely obstructive sleep apnea. PLAN: Continue inhaled bronchodilators, supplemental O2 p.r.n., check arterial blood gas, also PFT as outpatient. Also consider sleep studies as outpatient. HARRISON CONTE M.D. [id number]
[2017-03-26] MEDS: ATORVASTATIN CA 40 MG TABLET (FP) PO SCH (21:53)
--- NOTE | 2017-03-26 23:35 | PN ---
Progress Note, Physician Chief Complaint: has improved clinically denies pain or discomfort History of Present Illness: dm,htn ashd,hyperlipidemia,sp hypoglycemic event - Current Medication List Current Medications: Active Medications Acetaminophen (Tylenol -) 650 mg PO Q6H PRN PRN Reason: FEVER OR PAIN Albuterol/Ipratropium (Duoneb -) 1 amp NEB Q6H PRN PRN Reason: SHORTNESS OF BREATH Aspirin (Ecotrin -) 81 mg PO DAILY [facility] Last Admin: 03/26/17 10:29 Dose: 81 mg Atorvastatin Calcium (Lipitor -) 40 mg PO HS [facility] Last Admin: 03/26/17 21:53 Dose: 40 mg Budesonide/Formoterol Fumarate (Symbicort 80/4.5mcg -) 2 puff IH BID [facility] Last Admin: 03/26/17 21:53 Dose: 2 puff Clopidogrel Bisulfate (Plavix -) 75 mg PO DAILY [facility] Last Admin: 03/26/17 10:29 Dose: 75 mg Furosemide (Lasix -) 40 mg PO DAILY [facility] Last Admin: 03/26/17 10:29 Dose: 40 mg Glimepiride (Amaryl -) 4 mg PO DAILY@0700 [facility] Last Admin: 03/26/17 06:30 Dose: 4 mg Insulin Aspart (Novolog Vial Sliding Scale -) 1 vial SQ ACHS [facility] PRN Reason: Protocol Last Admin: 03/26/17 21:54 Dose: 2 units Insulin Aspart (Novolog Mix 70/30 Vial) 20 units SQ BIDAC [facility] Metoprolol Tartrate (Lopressor -) 50 mg PO DAILY [facility] Last Admin: 03/26/17 10:29 Dose: 50 mg Quinapril HCl (Accupril -) 10 mg PO DAILY [facility] Last Admin: 03/26/17 14:15 Dose: 10 mg Ranitidine HCl (Zantac -) 150 mg PO BID [facility] Last Admin: 03/26/17 21:53 Dose: 150 mg - Objective Vital Signs: Vital Signs Temperature 97.8 F 03/26/17 18:00 Pulse Rate 64 03/26/17 18:00 Respiratory Rate 18 03/26/17 20:53 Blood Pressure 140/70 03/26/17 18:00 O2 Sat by Pulse Oximetry (%) 98 03/26/17 20:39 Constitutional: Yes: Well Nourished Eyes: Yes: EOM Intact HENT: Yes: Normocephalic Neck: Yes: Trachea Midline Cardiovascular: Yes: Regular Rate and Rhythm Respiratory: Yes: CTA Bilaterally Gastrointestinal: Yes: Normal Bowel Sounds ...Rectal Exam: Yes: Deferred Genitourinary: Yes: WNL Breast(s): Yes: WNL Musculoskeletal: Yes: WNL Extremities: Yes: WNL Neurological: Yes: Alert, Oriented Labs: CBC, BMP 03/26/17 07:00 03/26/17 07:00 Problem List - Problems (1) Hypoglycemia Code(s): E16.2 - HYPOGLYCEMIA, UNSPECIFIED (2) COPD exacerbation Code(s): J44.1 - CHRONIC OBSTRUCTIVE PULMONARY DISEASE W (ACUTE) EXACERBATION (3) Diabetes mellitus, insulin dependent (IDDM), uncontrolled Code(s): E10.65 - TYPE 1 DIABETES MELLITUS WITH HYPERGLYCEMIA Qualifiers: Chronic kidney disease stage: unspecified stage (4) Dyspnea on exertion Code(s): R06.09 - OTHER FORMS OF DYSPNEA (5) Exercise hypoxemia Code(s): R09.02 - HYPOXEMIA (6) Leg edema Code(s): R60.0 - LOCALIZED EDEMA Assessment/Plan Current Active Problems Acute hypercapnic respiratory failure (Acute) Hypoglycemia (Acute) hypertension copd ashd Abnormal Lab Results 03/26/17 03/26/17 03/26/17 07:00 07:00 16:00 ABG pCO2 at Pt Temp 47.7 H ABG pO2 at Pt Temp 62.2 L ABG HCO3 30.5 H ABG O2 Sat (Measured) 89.4 L ABG Base Excess 5.4 H Random Glucose 166 H D Hemoglobin A1c % 8.1 H D Calcium 8.2 L AST 14 L Total Protein 6.3 L Albumin 3.2 L Triglycerides 195 H HDL Cholesterol 37 L Laboratory Results - last 24 hr 03/26/17 03/26/17 03/26/17 05:42 07:00 07:00 WBC 5.6 D RBC 4.41 Hgb 13.4 Hct 39.4 MCV 89.3 MCH 30.3 MCHC 33.9 RDW 14.1 Plt Count 152 MPV 10.8 D Puncture Site ABG pH ABG pCO2 at Pt Temp ABG pO2 at Pt Temp ABG HCO3 ABG O2 Sat (Measured) ABG O2 Content ABG Base Excess Max Test Oxygen Flow Rate Sodium 138 Potassium 4.0 Chloride 101 Carbon Dioxide 29 Anion Gap 8 BUN 14 Creatinine 0.8 Creat Clearance w eGFR > 60 POC Glucometer 151 Random Glucose 166 H D Hemoglobin A1c % Calcium 8.2 L Total Bilirubin 0.5 D AST 14 L ALT 18 Alkaline Phosphatase 68 Total Protein 6.3 L Albumin 3.2 L Triglycerides 195 H Cholesterol 149 Total LDL Cholesterol 81 HDL Cholesterol 37 L 03/26/17 03/26/17 03/26/17 07:00 11:43 16:00 WBC RBC Hgb Hct MCV MCH MCHC RDW Plt Count MPV Puncture Site Right radial ABG pH 7.42 ABG pCO2 at Pt Temp 47.7 H ABG pO2 at Pt Temp 62.2 L ABG HCO3 30.5 H ABG O2 Sat (Measured) 89.4 L ABG O2 Content 17.2 ABG Base Excess 5.4 H Max Test Positive Oxygen Flow Rate Room air Sodium Potassium Chloride Carbon Dioxide Anion Gap BUN Creatinine Creat Clearance w eGFR POC Glucometer 223 Random Glucose Hemoglobin A1c % 8.1 H D Calcium Total Bilirubin AST ALT Alkaline Phosphatase Total Protein Albumin Triglycerides Cholesterol Total LDL Cholesterol HDL Cholesterol 03/26/17 03/26/17 16:54 21:01 WBC RBC Hgb Hct MCV MCH MCHC RDW Plt Count MPV Puncture Site ABG pH ABG pCO2 at Pt Temp ABG pO2 at Pt Temp ABG HCO3 ABG O2 Sat (Measured) ABG O2 Content ABG Base Excess Max Test Oxygen Flow Rate Sodium Potassium Chloride Carbon Dioxide Anion Gap BUN Creatinine Creat Clearance w eGFR POC Glucometer 279 228 Random Glucose Hemoglobin A1c % Calcium Total Bilirubin AST ALT Alkaline Phosphatase Total Protein Albumin Triglycerides Cholesterol Total LDL Cholesterol HDL Cholesterol plan: novolog 70/30 20 units bid continue with bgm sliding scale
[2017-03-27] MEDS: INSULIN SLIDING SCALE (NOVOLOG) 1 VIAL SQ SCH ×4 (06:22→22:25)
[2017-03-27] MEDS: INSULIN (NOVOLOG MIX 70/30) 100 UNITS/ML MDV SQ SCH ×2 (06:52→17:26)
[2017-03-27] MEDS: GLIMEPIRIDE 4 MG TABLET (FP) PO SCH (06:52)
--- NOTE | 2017-03-27 09:04 | PN ---
Progress Note (short form) - Note Progress Note: Neurology 76 yo RH m man with a long h/o DM (>15 yrs), HTN, Chol, ASHD, S/P stent, is maintained on atorvastatin, clopidogrel, quinipril, furosamide, insulins, metoprolol and ranitidine. Was found in bed, difficult to arouse with stertorous respirations and Blood glucose of [address] dietz over the weekend and felt to be improved. Said he was better. 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 Spoke to nurse, has poor diabetic control and getting further glycemic optimization. Neurologically stable this morning. Active Medications Acetaminophen (Tylenol -) 650 mg PO Q6H PRN PRN Reason: FEVER OR PAIN Albuterol/Ipratropium (Duoneb -) 1 amp NEB Q6H PRN PRN Reason: SHORTNESS OF BREATH Aspirin (Ecotrin -) 81 mg PO DAILY [facility] Last Admin: 03/26/17 10:29 Dose: 81 mg Atorvastatin Calcium (Lipitor -) 40 mg PO HS [facility] Last Admin: 03/26/17 21:53 Dose: 40 mg Budesonide/Formoterol Fumarate (Symbicort 80/4.5mcg -) 2 puff IH BID [facility] Last Admin: 03/26/17 21:53 Dose: 2 puff Clopidogrel Bisulfate (Plavix -) 75 mg PO DAILY [facility] Last Admin: 03/26/17 10:29 Dose: 75 mg Furosemide (Lasix -) 40 mg PO DAILY [facility] Last Admin: 03/26/17 10:29 Dose: 40 mg Glimepiride (Amaryl -) 4 mg PO DAILY@0700 [facility] Last Admin: 03/27/17 06:52 Dose: 4 mg Insulin Aspart (Novolog Vial Sliding Scale -) 1 vial SQ ACHS [facility] PRN Reason: Protocol Last Admin: 03/27/17 06:22 Dose: Not Given Insulin Aspart (Novolog Mix 70/30 Vial) 20 units SQ BIDAC [facility] Last Admin: 03/27/17 06:52 Dose: 20 units Metoprolol Tartrate (Lopressor -) 50 mg PO DAILY [facility] Last Admin: 03/26/17 10:29 Dose: 50 mg Quinapril HCl (Accupril -) 10 mg PO DAILY [facility] Last Admin: 03/26/17 14:15 Dose: 10 mg Ranitidine HCl (Zantac -) 150 mg PO BID [facility] Last Admin: 03/26/17 21:53 Dose: 150 mg Vital Signs Period Temp Pulse Resp BP Sys/Rodriguez Pulse Ox Last 24 Hr 97.8 F-98.2 F 64-70 18-20 126-140/59-70 98 Awake, alert, RRR, no murmur Lungs clear, no wheezing Abdomen soft, nontender, distended Skin without rashes Pulses intact NEURO: Awake, alert, Ox 3. Fluent speech CN II-XII: Normal Motor: No drift or tremor. Normal strength. Areflexic in the legs. Toes downgoing. Coord: No FTN dystaxia Sensory: Decreased vib both feet. Romberg +/- CBCD WBC 5.6 K/mm3 (4.0-10.0) D 03/26/17 07:00 RBC 4.41 M/mm3 (4.00-5.60) 03/26/17 07:00 Hgb 13.4 GM/dL (11.7-16.9) 03/26/17 07:00 Hct 39.4 % (35.4-49) 03/26/17 07:00 MCV 89.3 fl (80-96) 03/26/17 07:00 MCHC 33.9 g/dl (32.0-35.9) 03/26/17 07:00 RDW 14.1 % (11.9-15.9) 03/26/17 07:00 Plt Count 152 K/MM3 (134-434) 03/26/17 07:00 MPV 10.8 fl (7.5-11.1) D 03/26/17 07:00 CMP Sodium 138 mmol/L (136-145) 03/26/17 07:00 Potassium 4.0 mmol/L (3.5-5.1) 03/26/17 07:00 Chloride 101 mmol/L (98-107) 03/26/17 07:00 Carbon Dioxide 29 mmol/L (21-32) 03/26/17 07:00 Anion Gap 8 (8-16) 03/26/17 07:00 BUN 14 mg/dL (7-18) 03/26/17 07:00 Creatinine 0.8 mg/dL (0.7-1.3) 03/26/17 07:00 Creat Clearance w eGFR > 60 (>60) 03/26/17 07:00 Calcium 8.2 mg/dL (8.5-10.1) L 03/26/17 07:00 Total Bilirubin 0.5 mg/dL (0.2-1.0) D 03/26/17 07:00 AST 14 U/L (15-37) L 03/26/17 07:00 ALT 18 U/L (12-78) 03/26/17 07:00 Alkaline Phosphatase 68 U/L (45-117) 03/26/17 07:00 Total Protein 6.3 g/dl (6.4-8.2) L 03/26/17 07:00 Albumin 3.2 g/dl (3.4-5.0) L 03/26/17 07:00 Imaging MRI of brain (reviewed): moderate atdrophy, moderate ventriculomegally (ex vacuo ) with scattered microvascular changes including a right paramedian pontine lacunar infarction. Plan: 76 yo RH m man with a long h/o DM (>15 yrs), HTN, Chol, ASHD, S/P stent, is maintained on atorvastatin, clopidogrel, quinipril, furosamide, insulins, metoprolol and ranitidine. Was found in bed, difficult to arouse with stertorous respirations and Blood glucose of [address] dietz over the weekend and felt to be improved. Said he was better. 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 Spoke to nurse, has poor diabetic control and getting further glycemic optimization. Likely combination of altered mental status due to hypoglycemia. Can continue plavix for CVA prevention, no new infarct noted. Monitor BP, maintain < 140/90. Continue insulin, glimeperide, maintain euglycemic range.
[2017-03-27] MEDS: METOPROLOL TARTRATE 50 MG TABLET (FP) PO SCH (10:32)
[2017-03-27] MEDS: ASPIRIN COATED 81 MG TABLET.EC PO SCH (10:32)
[2017-03-27] MEDS: RANITIDINE HCL 150 MG TABLET (FP) PO SCH ×2 (10:32→22:22)
[2017-03-27] MEDS: CLOPIDOGREL BISULFATE 75 MG TABLET (FP) PO SCH (10:32)
[2017-03-27] MEDS: BUDESONIDE/FORMETEROL FUMARATE 80/4.5 mcg INHALER IH SCH ×2 (10:33→22:23)
[2017-03-27] MEDS: FUROSEMIDE 40 MG TABLET (FP) PO SCH (10:33)
[2017-03-27] MEDS: QUINAPRIL HCL 10 MG TABLET (FP) PO SCH (10:33)
--- NOTE | 2017-03-27 11:28 | PN ---
Progress Note, Physician Chief Complaint: hypoglycemia History of Present Illness: NAD, in bed seen by Endocrinology, cardiology and neurology on Novolog 70/30 and sliding scale - Current Medication List Current Medications: Active Medications Acetaminophen (Tylenol -) 650 mg PO Q6H PRN PRN Reason: FEVER OR PAIN Albuterol/Ipratropium (Duoneb -) 1 amp NEB Q6H PRN PRN Reason: SHORTNESS OF BREATH Aspirin (Ecotrin -) 81 mg PO DAILY [facility] Last Admin: 03/27/17 10:32 Dose: 81 mg Atorvastatin Calcium (Lipitor -) 40 mg PO HS [facility] Last Admin: 03/26/17 21:53 Dose: 40 mg Budesonide/Formoterol Fumarate (Symbicort 80/4.5mcg -) 2 puff IH BID [facility] Last Admin: 03/27/17 10:33 Dose: 2 puff Clopidogrel Bisulfate (Plavix -) 75 mg PO DAILY [facility] Last Admin: 03/27/17 10:32 Dose: 75 mg Furosemide (Lasix -) 40 mg PO DAILY [facility] Last Admin: 03/27/17 10:33 Dose: 40 mg Glimepiride (Amaryl -) 4 mg PO DAILY@0700 [facility] Last Admin: 03/27/17 06:52 Dose: 4 mg Insulin Aspart (Novolog Vial Sliding Scale -) 1 vial SQ ACHS [facility] PRN Reason: Protocol Last Admin: 03/27/17 06:22 Dose: Not Given Insulin Aspart (Novolog Mix 70/30 Vial) 20 units SQ BIDAC [facility] Last Admin: 03/27/17 06:52 Dose: 20 units Metoprolol Tartrate (Lopressor -) 50 mg PO DAILY [facility] Last Admin: 03/27/17 10:32 Dose: 50 mg Quinapril HCl (Accupril -) 10 mg PO DAILY [facility] Last Admin: 03/27/17 10:33 Dose: 10 mg Ranitidine HCl (Zantac -) 150 mg PO BID [facility] Last Admin: 03/27/17 10:32 Dose: 150 mg - Objective Vital Signs: Vital Signs Temperature 97.8 F 03/27/17 09:14 Pulse Rate 89 03/27/17 09:14 Respiratory Rate 20 03/27/17 09:14 Blood Pressure 129/69 03/27/17 09:14 O2 Sat by Pulse Oximetry (%) 98 03/26/17 20:39 Constitutional: Yes: Well Nourished, No Distress, Calm Cardiovascular: Yes: Regular Rate and Rhythm Respiratory: Yes: Regular Gastrointestinal: Yes: WNL Musculoskeletal: Yes: WNL Extremities: Yes: WNL Edema: No Peripheral Pulses WNL: Yes Neurological: Yes: Alert, Oriented Psychiatric: Yes: Alert, Oriented Labs: CBC, BMP 03/26/17 07:00 03/26/17 07:00 Problem List - Problems (1) Hypoglycemia Assessment/Plan: -likely secondary to sulfanylurea -endocrinology on board -Novolog 70-30 and sliding scale A1C at 8.1 Code(s): E16.2 - HYPOGLYCEMIA, UNSPECIFIED (2) Diabetes mellitus, insulin dependent (IDDM), uncontrolled Assessment/Plan: -endocrinology on board -Novolog 70-30 and sliding scale A1C at 8.1 Code(s): E10.65 - TYPE 1 DIABETES MELLITUS WITH HYPERGLYCEMIA Qualifiers: Chronic kidney disease stage: unspecified stage Assessment/Plan see problem list -seen by PT, minimal assistance
--- NOTE | 2017-03-27 12:29 | PN ---
Progress Note (short form) - Note Progress Note: NAD. No acute events overnight. Intake & Output 03/24/17 03/25/17 03/26/17 03/27/17 23:59 23:59 23:59 23:59 Intake Total 600 1100 Balance 600 1100 Weight 200 lb Last Vital Signs Temp Pulse Resp BP Pulse Ox 97.8 F 89 20 129/69 97 03/27/17 09:14 03/27/17 09:14 03/27/17 09:14 03/27/17 09:14 03/27/17 09:00 Active Medications Acetaminophen (Tylenol -) 650 mg PO Q6H PRN PRN Reason: FEVER OR PAIN Albuterol/Ipratropium (Duoneb -) 1 amp NEB Q6H PRN PRN Reason: SHORTNESS OF BREATH Aspirin (Ecotrin -) 81 mg PO DAILY [facility] Last Admin: 03/27/17 10:32 Dose: 81 mg Atorvastatin Calcium (Lipitor -) 40 mg PO HS [facility] Last Admin: 03/26/17 21:53 Dose: 40 mg Budesonide/Formoterol Fumarate (Symbicort 80/4.5mcg -) 2 puff IH BID [facility] Last Admin: 03/27/17 10:33 Dose: 2 puff Clopidogrel Bisulfate (Plavix -) 75 mg PO DAILY [facility] Last Admin: 03/27/17 10:32 Dose: 75 mg Furosemide (Lasix -) 40 mg PO DAILY [facility] Last Admin: 03/27/17 10:33 Dose: 40 mg Glimepiride (Amaryl -) 4 mg PO DAILY@0700 [facility] Last Admin: 03/27/17 06:52 Dose: 4 mg Insulin Aspart (Novolog Vial Sliding Scale -) 1 vial SQ ACHS [facility] PRN Reason: Protocol Last Admin: 03/27/17 12:00 Dose: 2 units Insulin Aspart (Novolog Mix 70/30 Vial) 20 units SQ BIDAC [facility] Last Admin: 03/27/17 06:52 Dose: 20 units Metoprolol Tartrate (Lopressor -) 50 mg PO DAILY [facility] Last Admin: 03/27/17 10:32 Dose: 50 mg Quinapril HCl (Accupril -) 10 mg PO DAILY [facility] Last Admin: 03/27/17 10:33 Dose: 10 mg Ranitidine HCl (Zantac -) 150 mg PO BID [facility] Last Admin: 03/27/17 10:32 Dose: 150 mg Constitutional: Yes: NAD Cardiovascular: Yes: Regular Rate and Rhythm Respiratory: Yes: Few scattered rhonchi Gastrointestinal: Yes: WNL Musculoskeletal: Yes: WNL Extremities: Yes: WNL Edema: No Peripheral Pulses WNL: Yes Neurological: Yes: Alert, Oriented Psychiatric: Yes: Alert, Oriented Labs: Laboratory Results - last 24 hr 03/25/17 03/26/17 03/26/17 06:31 16:00 16:54 Puncture Site Right radial ABG pH 7.42 ABG pCO2 at Pt Temp 47.7 H ABG pO2 at Pt Temp 62.2 L ABG HCO3 30.5 H ABG O2 Sat (Measured) 89.4 L ABG O2 Content 17.2 ABG Base Excess 5.4 H Max Test Positive Oxygen Flow Rate Room air POC Glucometer [id number] 279 03/26/17 03/27/17 03/27/17 21:01 05:52 11:45 Puncture Site ABG pH ABG pCO2 at Pt Temp ABG pO2 at Pt Temp ABG HCO3 ABG O2 Sat (Measured) ABG O2 Content ABG Base Excess Max Test Oxygen Flow Rate POC Glucometer 228 164 212 Problem List - Problems (1) Acute hypercapnic respiratory failure Code(s): J96.02 - ACUTE RESPIRATORY FAILURE WITH HYPERCAPNIA (2) Hypoglycemia Code(s): E16.2 - HYPOGLYCEMIA, UNSPECIFIED (3) COPD exacerbation Code(s): J44.1 - CHRONIC OBSTRUCTIVE PULMONARY DISEASE W (ACUTE) EXACERBATION (4) Diabetes mellitus, insulin dependent (IDDM), uncontrolled Code(s): E10.65 - TYPE 1 DIABETES MELLITUS WITH HYPERGLYCEMIA Qualifiers: Chronic kidney disease stage: unspecified stage IMP ACUTE HYPERCAPNEIC RESPIRATORY FAILURE HYPOGLYCEMIA COPD ASHD OBESITY LIKELY OSAS PLAN INHALED BRONCHODILATORS O2 PRN GLYCEMIC CONTROL SLEEP SCREEN DR MCCABE
[2017-03-27] MEDS ORDERED: INSULIN (NOVOLOG) ASPART 100 UNITS/ML 10ML VIAL ONE ×2 (17:55→21:47)
[2017-03-27] MEDS ORDERED: INSULIN (NOVOLOG MIX 70/30) 100 UNITS/ML MDV SQ ONE (17:55)
[2017-03-27] MEDS ORDERED: PT OWN MED DRAWER 7, Y5N ONE (21:48)
[2017-03-27] MEDS: ATORVASTATIN CA 40 MG TABLET (FP) PO SCH (22:23)
[2017-03-28] MEDS: GLIMEPIRIDE 4 MG TABLET (FP) PO SCH (06:49)
[2017-03-28] MEDS: INSULIN SLIDING SCALE (NOVOLOG) 1 VIAL SQ SCH ×4 (06:50→22:06)
[2017-03-28] MEDS: INSULIN (NOVOLOG MIX 70/30) 100 UNITS/ML MDV SQ SCH ×2 (06:50→17:14)
--- NOTE | 2017-03-28 08:22 | PN ---
Progress Note, Physician History of Present Illness: C/O VERTIGO C/O DIZZINESS NO CP - Current Medication List Current Medications: Active Medications Acetaminophen (Tylenol -) 650 mg PO Q6H PRN PRN Reason: FEVER OR PAIN Albuterol/Ipratropium (Duoneb -) 1 amp NEB Q6H [facility] Aspirin (Ecotrin -) 81 mg PO DAILY [facility] Last Admin: 03/27/17 10:32 Dose: 81 mg Atorvastatin Calcium (Lipitor -) 40 mg PO HS [facility] Last Admin: 03/27/17 22:23 Dose: 40 mg Budesonide/Formoterol Fumarate (Symbicort 80/4.5mcg -) 2 puff IH BID [facility] Last Admin: 03/27/17 22:23 Dose: 2 puff Clopidogrel Bisulfate (Plavix -) 75 mg PO DAILY [facility] Last Admin: 03/27/17 10:32 Dose: 75 mg Furosemide (Lasix -) 40 mg PO DAILY [facility] Last Admin: 03/27/17 10:33 Dose: 40 mg Glimepiride (Amaryl -) 4 mg PO DAILY@0700 [facility] Last Admin: 03/28/17 06:49 Dose: 4 mg Heparin Sodium (Porcine) (Heparin -) 5,000 unit SQ BID [facility] Insulin Aspart (Novolog Vial Sliding Scale -) 1 vial SQ ACHS [facility] PRN Reason: Protocol Last Admin: 03/28/17 06:50 Dose: Not Given Insulin Aspart (Novolog Mix 70/30 Vial) 25 units SQ BIDAC [facility] Last Admin: 03/28/17 06:50 Dose: 25 units Metoprolol Tartrate (Lopressor -) 50 mg PO DAILY [facility] Last Admin: 03/27/17 10:32 Dose: 50 mg Quinapril HCl (Accupril -) 10 mg PO DAILY [facility] Last Admin: 03/27/17 10:33 Dose: 10 mg Ranitidine HCl (Zantac -) 150 mg PO BID [facility] Last Admin: 03/27/17 22:22 Dose: 150 mg - Objective Vital Signs: Vital Signs Temperature 97.5 F L 03/28/17 05:40 Pulse Rate 74 03/28/17 05:40 Respiratory Rate 20 03/28/17 05:40 Blood Pressure 128/71 03/28/17 05:40 O2 Sat by Pulse Oximetry (%) 97 03/27/17 21:00 Cardiovascular: Yes: S1, S2 Respiratory: Yes: Regular, CTA Bilaterally Labs: CBC, BMP 03/26/17 07:00 03/26/17 07:00 Problem List - Problems (1) Vertigo Assessment/Plan: MRI NOTED-CHRONIC CHANGES REPEAT LABS NEURO F/U Code(s): R42 - DIZZINESS AND GIDDINESS (2) Hypoglycemia Assessment/Plan: MONITOR BGM OFF SULFA Code(s): E16.2 - HYPOGLYCEMIA, UNSPECIFIED (3) Diabetes mellitus, insulin dependent (IDDM), uncontrolled Assessment/Plan: MONITOR ON CURRENT MEDS Code(s): E10.65 - TYPE 1 DIABETES MELLITUS WITH HYPERGLYCEMIA Qualifiers: Chronic kidney disease stage: unspecified stage
[2017-03-28 09:30] LABS: EOSINOPHIL 3.6 % (0-4.5); MCH 29.4 pg (25.7-33.7); MCHC 32.9 g/dl (32.0-35.9); MEAN CELL VOLUME 89.5 fl (80-96); MEAN PLT VOLUME 10.2 fl (7.5-11.1); NEUTROPHILS 72.7 % (42.8-82.8); PLATELET COUNT 161 K/MM3 (134-434); RDW 14.1 % (11.9-15.9); WHITE BLOOD COUNT 8.4 K/mm3 (4.0-10.0)
--- NOTE | 2017-03-28 09:41 | PN ---
Progress Note (short form) - Note Progress Note: Neurology 76 yo RH m man with a long h/o DM (>15 yrs), HTN, Chol, ASHD, S/P stent, is maintained on atorvastatin, clopidogrel, quinipril, furosamide, insulins, metoprolol and ranitidine. Was found in bed, difficult to arouse with stertorous respirations and Blood glucose of [address] dietz over the weekend and felt to be improved. Said he was better. 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 Doing well this AM, sitting up in chair and interactive. No new neurologic events. Active Medications Acetaminophen (Tylenol -) 650 mg PO Q6H PRN PRN Reason: FEVER OR PAIN Albuterol/Ipratropium (Duoneb -) 1 amp NEB Q6HPO [facility] Aspirin (Ecotrin -) 81 mg PO DAILY [facility] Last Admin: 03/27/17 10:32 Dose: 81 mg Atorvastatin Calcium (Lipitor -) 40 mg PO HS [facility] Last Admin: 03/27/17 22:23 Dose: 40 mg Budesonide/Formoterol Fumarate (Symbicort 80/4.5mcg -) 2 puff IH BID [facility] Last Admin: 03/27/17 22:23 Dose: 2 puff Clopidogrel Bisulfate (Plavix -) 75 mg PO DAILY [facility] Last Admin: 03/27/17 10:32 Dose: 75 mg Furosemide (Lasix -) 40 mg PO DAILY [facility] Last Admin: 03/27/17 10:33 Dose: 40 mg Glimepiride (Amaryl -) 4 mg PO DAILY@0700 [facility] Last Admin: 03/28/17 06:49 Dose: 4 mg Heparin Sodium (Porcine) (Heparin -) 5,000 unit SQ BID [facility] Insulin Aspart (Novolog Vial Sliding Scale -) 1 vial SQ ACHS [facility] PRN Reason: Protocol Last Admin: 03/28/17 06:50 Dose: Not Given Insulin Aspart (Novolog Mix 70/30 Vial) 25 units SQ BIDAC [facility] Last Admin: 03/28/17 06:50 Dose: 25 units Metoprolol Tartrate (Lopressor -) 50 mg PO DAILY [facility] Last Admin: 03/27/17 10:32 Dose: 50 mg Quinapril HCl (Accupril -) 10 mg PO DAILY [facility] Last Admin: 03/27/17 10:33 Dose: 10 mg Ranitidine HCl (Zantac -) 150 mg PO BID [facility] Last Admin: 03/27/17 22:22 Dose: 150 mg Vital Signs Period Temp Pulse Resp BP Sys/Rodirguez Pulse Ox Last 24 Hr 97.5 F-98.3 F 69-93 17-20 106-138/52-71 97 Awake, alert, RRR, no murmur Lungs clear, no wheezing Abdomen soft, nontender, distended Skin without rashes Pulses intact NEURO: Awake, alert, Ox 3. Fluent speech CN II-XII: Normal Motor: No drift or tremor. Normal strength. Areflexic in the legs. Toes downgoing. Coord: No FTN dystaxia Sensory: Decreased vib both feet. Romberg +/- CBCD WBC 5.6 K/mm3 (4.0-10.0) D 03/26/17 07:00 RBC 4.41 M/mm3 (4.00-5.60) 03/26/17 07:00 Hgb 13.4 GM/dL (11.7-16.9) 03/26/17 07:00 Hct 39.4 % (35.4-49) 03/26/17 07:00 MCV 89.3 fl (80-96) 03/26/17 07:00 MCHC 33.9 g/dl (32.0-35.9) 03/26/17 07:00 RDW 14.1 % (11.9-15.9) 03/26/17 07:00 Plt Count 152 K/MM3 (134-434) 03/26/17 07:00 MPV 10.8 fl (7.5-11.1) D 03/26/17 07:00 CMP Sodium 138 mmol/L (136-145) 03/26/17 07:00 Potassium 4.0 mmol/L (3.5-5.1) 03/26/17 07:00 Chloride 101 mmol/L (98-107) 03/26/17 07:00 Carbon Dioxide 29 mmol/L (21-32) 03/26/17 07:00 Anion Gap 8 (8-16) 03/26/17 07:00 BUN 14 mg/dL (7-18) 03/26/17 07:00 Creatinine 0.8 mg/dL (0.7-1.3) 03/26/17 07:00 Creat Clearance w eGFR > 60 (>60) 03/26/17 07:00 Calcium 8.2 mg/dL (8.5-10.1) L 03/26/17 07:00 Total Bilirubin 0.5 mg/dL (0.2-1.0) D 03/26/17 07:00 AST 14 U/L (15-37) L 03/26/17 07:00 ALT 18 U/L (12-78) 03/26/17 07:00 Alkaline Phosphatase 68 U/L (45-117) 03/26/17 07:00 Total Protein 6.3 g/dl (6.4-8.2) L 03/26/17 07:00 Albumin 3.2 g/dl (3.4-5.0) L 03/26/17 07:00 Imaging MRI of brain (reviewed): moderate atdrophy, moderate ventriculomegally (ex vacuo ) with scattered microvascular changes including a right paramedian pontine lacunar infarction. Plan: 76 yo RH m man with a long h/o DM (>15 yrs), HTN, Chol, ASHD, S/P stent, is maintained on atorvastatin, clopidogrel, quinipril, furosamide, insulins, metoprolol and ranitidine. Was found in bed, difficult to arouse with stertorous respirations and Blood glucose of [address] dietz over the weekend and felt to be improved. Said he was better. 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 Spoke to nurse, has poor diabetic control and getting further glycemic optimization. Likely combination of altered mental status due to hypoglycemia. Can continue plavix for CVA prevention, no new infarct noted. Monitor BP, maintain < 140/90. Continue insulin, glimeperide, maintain euglycemic range. No further neuro rec'd at this time. Possibly for discharge.
[2017-03-28 09:54] LABS: ALBUMIN 3.3 g/dl (3.4-5.0); ANION GAP 6 (8-16); BILIRUBIN,TOTAL 0.5 mg/dL (0.2-1.0); CALCIUM 8.4 mg/dL (8.5-10.1); CO2 31 mmol/L (21-32); CREATININE 0.9 mg/dL (0.7-1.3); GLUCOSE,RANDOM 219 mg/dL (74-106); SGOT/AST 14 U/L (15-37); SGPT/ALT 22 U/L (12-78); TOT PROT 6.7 g/dl (6.4-8.2)
[2017-03-28 09:55] LABS: ARTERIAL BLD GAS O2 SATURATION 90.4 % (90-98.9); ARTERIAL BLOOD GAS BASE EXCESS 3.5 meq/l (-2-2); ARTERIAL BLOOD GAS HCO3 28.2 meq/L (22-26); ARTERIAL BLOOD GAS PO2 64.6 mmHg (70-100); ARTERIAL BLOOD GAS pH 7.41 (7.35-7.45)
[2017-03-28 09:57] LABS: ALK PHOS 72 U/L (45-117); CPK 52 IU/L (39-308); TROPONIN I < 0.02 ng/ml (0.00-0.05)
[2017-03-28 09:58] LABS: ART PUNCT SITE RIGHT RADIAL
[2017-03-28] MEDS ORDERED: PT OWN MED DRAWER 7, Y5N ONE (10:23)
[2017-03-28] MEDS: ASPIRIN COATED 81 MG TABLET.EC PO SCH (10:28)
[2017-03-28] MEDS: RANITIDINE HCL 150 MG TABLET (FP) PO SCH ×2 (10:28→22:05)
[2017-03-28] MEDS: METOPROLOL TARTRATE 50 MG TABLET (FP) PO SCH (10:28)
[2017-03-28] MEDS: FUROSEMIDE 40 MG TABLET (FP) PO SCH (10:28)
[2017-03-28] MEDS: HEPARIN NA (PORCINE) 5,000 UNITS/ML 1ML VIAL SQ SCH ×2 (10:28→22:06)
[2017-03-28] MEDS: CLOPIDOGREL BISULFATE 75 MG TABLET (FP) PO SCH (10:28)
[2017-03-28] MEDS: BUDESONIDE/FORMETEROL FUMARATE 80/4.5 mcg INHALER IH SCH ×2 (10:30→22:10)
[2017-03-28] MEDS: ALBUTEROL SO4 2.5/IPRATROPIUM 0.5 INH SOL 3 ML VIAL.NEB. NEB SCH ×3 (11:25→23:09)
[2017-03-28] MEDS ORDERED: INSULIN (NOVOLOG) ASPART 100 UNITS/ML 10ML VIAL ONE (11:40)
[2017-03-28] MEDS: QUINAPRIL HCL 10 MG TABLET (FP) PO SCH (11:44)
[2017-03-28] MEDS ORDERED: MECLIZINE HCL 25 MG TABLET (FP) PO PRN (13:15)
--- NOTE | 2017-03-28 15:32 | PN ---
Progress Note (short form) - Note Progress Note: Still with some dizziness. No CP or SOB. No acute events overnight. Intake & Output 03/25/17 03/26/17 03/27/17 03/28/17 23:59 23:59 23:59 23:59 Intake Total 600 1100 1050 500 Balance 600 1100 1050 500 Weight 200 lb Last Vital Signs Temp Pulse Resp BP Pulse Ox 98.9 F 74 20 128/71 97 03/28/17 14:00 03/28/17 05:40 03/28/17 05:40 03/28/17 05:40 03/27/17 21:00 Active Medications Acetaminophen (Tylenol -) 650 mg PO Q6H PRN PRN Reason: FEVER OR PAIN Albuterol/Ipratropium (Duoneb -) 1 amp NEB Q6HPO [facility] Last Admin: 03/28/17 11:25 Dose: 1 amp Aspirin (Ecotrin -) 81 mg PO DAILY [facility] Last Admin: 03/28/17 10:28 Dose: 81 mg Atorvastatin Calcium (Lipitor -) 40 mg PO HS [facility] Last Admin: 03/27/17 22:23 Dose: 40 mg Budesonide/Formoterol Fumarate (Symbicort 80/4.5mcg -) 2 puff IH BID [facility] Last Admin: 03/28/17 10:30 Dose: 2 puff Clopidogrel Bisulfate (Plavix -) 75 mg PO DAILY [facility] Last Admin: 03/28/17 10:28 Dose: 75 mg Furosemide (Lasix -) 40 mg PO DAILY [facility] Last Admin: 03/28/17 10:28 Dose: 40 mg Glimepiride (Amaryl -) 4 mg PO DAILY@0700 [facility] Last Admin: 03/28/17 06:49 Dose: 4 mg Heparin Sodium (Porcine) (Heparin -) 5,000 unit SQ BID [facility] Last Admin: 03/28/17 10:28 Dose: 5,000 unit Insulin Aspart (Novolog Vial Sliding Scale -) 1 vial SQ ACHS [facility] PRN Reason: Protocol Last Admin: 03/28/17 11:43 Dose: 4 units Insulin Aspart (Novolog Mix 70/30 Vial) 25 units SQ BIDAC [facility] Last Admin: 03/28/17 06:50 Dose: 25 units Meclizine HCl (Antivert -) 25 mg PO TID PRN PRN Reason: VERTIGO Metoprolol Tartrate (Lopressor -) 50 mg PO DAILY [facility] Last Admin: 03/28/17 10:28 Dose: 50 mg Quinapril HCl (Accupril -) 10 mg PO DAILY [facility] Last Admin: 03/28/17 11:44 Dose: 10 mg Ranitidine HCl (Zantac -) 150 mg PO BID [facility] Last Admin: 03/28/17 10:28 Dose: 150 mg Constitutional: Yes: NAD Cardiovascular: Yes: Regular Rate and Rhythm Respiratory: Yes: Few scattered rhonchi Gastrointestinal: Yes: WNL Musculoskeletal: Yes: WNL Extremities: Yes: WNL Edema: No Peripheral Pulses WNL: Yes Neurological: Yes: Alert, Oriented Psychiatric: Yes: Alert, Oriented Labs: Laboratory Results - last 24 hr 03/27/17 03/27/17 03/27/17 16:55 16:56 22:24 WBC RBC Hgb Hct MCV MCH MCHC RDW Plt Count MPV Neutrophils % Lymphocytes % Monocytes % Eosinophils % Basophils % Puncture Site ABG pH ABG pCO2 at Pt Temp ABG pO2 at Pt Temp ABG HCO3 ABG O2 Sat (Measured) ABG O2 Content ABG Base Excess Sodium Potassium Chloride Carbon Dioxide Anion Gap BUN Creatinine Creat Clearance w eGFR POC Glucometer 417 364 239 Random Glucose Calcium Total Bilirubin AST ALT Alkaline Phosphatase Creatine Kinase Troponin I Total Protein Albumin 03/28/17 03/28/17 03/28/17 05:47 08:19 09:00 WBC RBC Hgb Hct MCV MCH MCHC RDW Plt Count MPV Neutrophils % Lymphocytes % Monocytes % Eosinophils % Basophils % Puncture Site Right radial ABG pH 7.41 ABG pCO2 at Pt Temp 45.1 H ABG pO2 at Pt Temp 64.6 L ABG HCO3 28.2 H ABG O2 Sat (Measured) 90.4 ABG O2 Content 18.2 ABG Base Excess 3.5 H Sodium 136 Potassium 4.1 Chloride 99 Carbon Dioxide 31 Anion Gap 6 L BUN 25 H D Creatinine 0.9 Creat Clearance w eGFR > 60 POC Glucometer 206 Random Glucose 219 H D Calcium 8.4 L Total Bilirubin 0.5 AST 14 L ALT 22 D Alkaline Phosphatase 72 Creatine Kinase 52 Troponin I < 0.02 Total Protein 6.7 Albumin 3.3 L 03/28/17 03/28/17 09:10 11:27 WBC 8.4 D RBC 4.67 Hgb 13.7 Hct 41.8 MCV 89.5 MCH 29.4 MCHC 32.9 RDW 14.1 Plt Count 161 MPV 10.2 Neutrophils % 72.7 Lymphocytes % 15.5 D Monocytes % 7.2 Eosinophils % 3.6 D Basophils % 1.0 Puncture Site ABG pH ABG pCO2 at Pt Temp ABG pO2 at Pt Temp ABG HCO3 ABG O2 Sat (Measured) ABG O2 Content ABG Base Excess Sodium Potassium Chloride Carbon Dioxide Anion Gap BUN Creatinine Creat Clearance w eGFR POC Glucometer 292 Random Glucose Calcium Total Bilirubin AST ALT Alkaline Phosphatase Creatine Kinase Troponin I Total Protein Albumin Problem List - Problems (1) Acute hypercapnic respiratory failure Code(s): J96.02 - ACUTE RESPIRATORY FAILURE WITH HYPERCAPNIA (2) Hypoglycemia Code(s): E16.2 - HYPOGLYCEMIA, UNSPECIFIED (3) COPD exacerbation Code(s): J44.1 - CHRONIC OBSTRUCTIVE PULMONARY DISEASE W (ACUTE) EXACERBATION (4) Diabetes mellitus, insulin dependent (IDDM), uncontrolled Code(s): E10.65 - TYPE 1 DIABETES MELLITUS WITH HYPERGLYCEMIA Qualifiers: Chronic kidney disease stage: unspecified stage IMP ACUTE HYPERCAPNEIC RESPIRATORY FAILURE HYPOGLYCEMIA COPD ASHD OBESITY LIKELY OSAS PLAN INHALED BRONCHODILATORS O2 PRN GLYCEMIC CONTROL SLEEP SCREEN NUERO WORKUP ONGOING DR MCCABE
[2017-03-28] MEDS: ATORVASTATIN CA 40 MG TABLET (FP) PO SCH (22:06)
[2017-03-29] MEDS: INSULIN (NOVOLOG MIX 70/30) 100 UNITS/ML MDV SQ SCH ×2 (06:35→17:22)
[2017-03-29] MEDS: GLIMEPIRIDE 4 MG TABLET (FP) PO SCH (06:36)
[2017-03-29] MEDS: INSULIN SLIDING SCALE (NOVOLOG) 1 VIAL SQ SCH ×4 (06:36→21:58)
[2017-03-29] MEDS: ALBUTEROL SO4 2.5/IPRATROPIUM 0.5 INH SOL 3 ML VIAL.NEB. NEB SCH ×3 (06:49→19:09)
[2017-03-29] MEDS ORDERED: PT OWN MED DRAWER 7, Y5N ONE ×3 (07:04→21:53)
--- NOTE | 2017-03-29 07:45 | EKG ---
Test Reason : Blood Pressure : / mmHG Vent. Rate : 070 BPM Atrial Rate : 070 BPM P-R Int : 162 ms QRS Dur : 092 ms QT Int : 416 ms P-R-T Axes : 060 015 101 degrees QTc Int : 449 ms NORMAL SINUS RHYTHM NONSPECIFIC T WAVE ABNORMALITY ABNORMAL ECG WHEN COMPARED WITH ECG OF 25-MAR-2017 14:51, NO SIGNIFICANT CHANGE WAS FOUND Confirmed by Fareed King ([id number]) on 03/28/2017 2:38:08 PM Also confirmed by MD King Daniel ([id number]), loan expeditor FAREED ZAZUETA ([id number]) on 03/29/2017 7:44:42 AM Referred By: Lien GARCIA Confirmed By:Fareed King MD
[2017-03-29] MEDS: HEPARIN NA (PORCINE) 5,000 UNITS/ML 1ML VIAL SQ SCH ×2 (09:37→21:58)
[2017-03-29] MEDS: RANITIDINE HCL 150 MG TABLET (FP) PO SCH ×2 (09:37→21:58)
[2017-03-29] MEDS: ASPIRIN COATED 81 MG TABLET.EC PO SCH (09:37)
[2017-03-29] MEDS: FUROSEMIDE 40 MG TABLET (FP) PO SCH (09:37)
[2017-03-29] MEDS: CLOPIDOGREL BISULFATE 75 MG TABLET (FP) PO SCH (09:37)
[2017-03-29] MEDS: BUDESONIDE/FORMETEROL FUMARATE 80/4.5 mcg INHALER IH SCH ×2 (09:38→21:59)
[2017-03-29] MEDS: QUINAPRIL HCL 10 MG TABLET (FP) PO SCH (09:39)
--- NOTE | 2017-03-29 09:39 | PN ---
Progress Note (short form) - Note Progress Note: Neurology 76 yo RH m man with a long h/o DM (>15 yrs), HTN, Chol, ASHD, S/P stent, is maintained on atorvastatin, clopidogrel, quinipril, furosamide, insulins, metoprolol and ranitidine. Was found in bed, difficult to arouse with stertorous respirations and Blood glucose of [address] dietz over the weekend and felt to be improved. Said he was better. 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 Doing well this AM, sitting up in chair and interactive. No new neurologic events. Dizzyness better. Meclezine ordered by me yesterday, not taken this AM. Ambulating better this AM per nurse's aide. Spoke to nurse as well and stable at this time. Active Medications Generic Name Dose Route Start Last Admin Trade Name Freq PRN Reason Stop Dose Admin Acetaminophen 650 mg 03/25/17 13:37 Tylenol - PO Q6H PRN FEVER OR PAIN Albuterol/Ipratropium 1 amp 03/28/17 12:00 03/29/17 06:49 Duoneb - NEB 1 amp Q6HPO [facility] Administration Aspirin 81 mg 03/26/17 10:00 03/28/17 10:28 Ecotrin - PO 81 mg DAILY [facility] Administration Atorvastatin Calcium 40 mg 03/25/17 13:45 03/28/17 22:06 Lipitor - PO 40 mg HS [facility] Administration Budesonide/Formoterol Fumarate 2 puff 03/25/17 22:00 03/28/17 22:10 Symbicort 80/4.5mcg - IH 2 puff BID [facility] Administration Clopidogrel Bisulfate 75 mg 03/26/17 10:00 03/28/17 10:28 Plavix - PO 75 mg DAILY [facility] Administration Furosemide 40 mg 03/26/17 10:00 03/28/17 10:28 Lasix - PO 40 mg DAILY [facility] Administration Glimepiride 4 mg 03/25/17 13:45 03/29/17 06:36 Amaryl - PO 4 mg DAILY@0700 [facility] Administration Heparin Sodium (Porcine) 5,000 unit 03/28/17 10:00 03/28/17 22:06 Heparin - SQ 5,000 unit BID [facility] Administration Insulin Aspart 1 vial 03/25/17 13:45 03/29/17 06:36 Novolog Vial Sliding Scale - SQ 4 units ACHS [facility] Administration Protocol Insulin Aspart 30 units 03/29/17 07:00 03/29/17 06:35 Novolog Mix 70/30 Vial SQ 30 units BIDAC [facility] Administration Meclizine HCl 25 mg 03/28/17 13:15 Antivert - PO TID PRN [facility] Metoprolol Tartrate 50 mg 03/26/17 10:00 03/28/17 10:28 Lopressor - PO 50 mg DAILY [facility] Administration Quinapril HCl 10 mg 03/26/17 10:00 03/28/17 11:44 Accupril - PO 10 mg DAILY [facility] Administration Ranitidine HCl 150 mg 03/25/17 22:00 03/28/17 22:05 Zantac - PO 150 mg BID [facility] Administration Vital Signs Period Temp Pulse Resp BP Sys/Rodriguez Pulse Ox Last 24 Hr 97.5 F-98.3 F 69-93 17-20 106-138/52-71 97 Awake, alert, RRR, no murmur Lungs clear, no wheezing Abdomen soft, nontender, distended Skin without rashes Pulses intact NEURO: Awake, alert, Ox 3. Fluent speech CN II-XII: Normal Motor: No drift or tremor. Normal strength. Areflexic in the legs. Toes downgoing. Coord: No FTN dystaxia Sensory: Decreased vib both feet. Romberg +/- CBCD WBC 8.4 K/mm3 (4.0-10.0) D 03/28/17 09:10 RBC 4.67 M/mm3 (4.00-5.60) 03/28/17 09:10 Hgb 13.7 GM/dL (11.7-16.9) 03/28/17 09:10 Hct 41.8 % (35.4-49) 03/28/17 09:10 MCV 89.5 fl (80-96) 03/28/17 09:10 MCHC 32.9 g/dl (32.0-35.9) 03/28/17 09:10 RDW 14.1 % (11.9-15.9) 03/28/17 09:10 Plt Count 161 K/MM3 (134-434) 03/28/17 09:10 MPV 10.2 fl (7.5-11.1) 03/28/17 09:10 CMP Sodium 136 mmol/L (136-145) 03/28/17 09:00 Potassium 4.1 mmol/L (3.5-5.1) 03/28/17 09:00 Chloride 99 mmol/L (98-107) 03/28/17 09:00 Carbon Dioxide 31 mmol/L (21-32) 03/28/17 09:00 Anion Gap 6 (8-16) L 03/28/17 09:00 BUN 25 mg/dL (7-18) H D 03/28/17 09:00 Creatinine 0.9 mg/dL (0.7-1.3) 03/28/17 09:00 Creat Clearance w eGFR > 60 (>60) 03/28/17 09:00 Calcium 8.4 mg/dL (8.5-10.1) L 03/28/17 09:00 Total Bilirubin 0.5 mg/dL (0.2-1.0) 03/28/17 09:00 AST 14 U/L (15-37) L 03/28/17 09:00 ALT 22 U/L (12-78) D 03/28/17 09:00 Alkaline Phosphatase 72 U/L (45-117) 03/28/17 09:00 Total Protein 6.7 g/dl (6.4-8.2) 03/28/17 09:00 Albumin 3.3 g/dl (3.4-5.0) L 03/28/17 09:00 Imaging MRI of brain (reviewed): moderate atdrophy, moderate ventriculomegally (ex vacuo ) with scattered microvascular changes including a right paramedian pontine lacunar infarction. Plan: 76 yo RH m man with a long h/o DM (>15 yrs), HTN, Chol, ASHD, S/P stent, is maintained on atorvastatin, clopidogrel, quinipril, furosamide, insulins, metoprolol and ranitidine. Was found in bed, difficult to arouse with stertorous respirations and Blood glucose of [address] dietz over the weekend and felt to be improved. Said he was better. 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 Spoke to nurse, has poor diabetic control and getting further glycemic optimization. Likely combination of altered mental status due to hypoglycemia. Can continue plavix for CVA prevention, no new infarct noted. Monitor BP, maintain < 140/90. Continue insulin, glimeperide, maintain euglycemic range. Meclezine ordered for dizzyness. No further neuro rec'd at this time. Possibly for discharge.
[2017-03-29] MEDS: METOPROLOL TARTRATE 50 MG TABLET (FP) PO SCH (09:41)
--- NOTE | 2017-03-29 12:50 | PN ---
Progress Note (short form) - Note Progress Note: PULMONARY VSS/AFEBRILE ANICTERIC CLEAR S1S2 BS+ NO EDEMA LABS/MEDS/NOTES REVIEWED IMP ACUTE HYPERCAPNEIC RESPIRATORY FAILURE HYPOGLYCEMIA COPD/ ASHD/PCI OBESITY LIKELY OSAS PLAN INHALED BRONCHODILATORS O2 PRN GLYCEMIC CONTROL SLEEP SCREEN Robert HAMEED MD
--- NOTE | 2017-03-29 15:17 | PN ---
Progress Note, Physician Chief Complaint: hypoglycemia History of Present Illness: NAD, in bed seen by Endocrinology, cardiology and neurology on Novolog 70/30 and sliding scale -awaiting psychiatry consult - Current Medication List Current Medications: Active Medications Acetaminophen (Tylenol -) 650 mg PO Q6H PRN PRN Reason: FEVER OR PAIN Albuterol/Ipratropium (Duoneb -) 1 amp NEB Q6HPO [facility] Last Admin: 03/29/17 11:46 Dose: 1 amp Aspirin (Ecotrin -) 81 mg PO DAILY [facility] Last Admin: 03/29/17 09:37 Dose: 81 mg Atorvastatin Calcium (Lipitor -) 40 mg PO HS [facility] Last Admin: 03/28/17 22:06 Dose: 40 mg Budesonide/Formoterol Fumarate (Symbicort 80/4.5mcg -) 2 puff IH BID [facility] Last Admin: 03/29/17 09:38 Dose: 2 puff Clopidogrel Bisulfate (Plavix -) 75 mg PO DAILY [facility] Last Admin: 03/29/17 09:37 Dose: 75 mg Furosemide (Lasix -) 40 mg PO DAILY [facility] Last Admin: 03/29/17 09:37 Dose: 40 mg Glimepiride (Amaryl -) 4 mg PO DAILY@0700 [facility] Last Admin: 03/29/17 06:36 Dose: 4 mg Heparin Sodium (Porcine) (Heparin -) 5,000 unit SQ BID [facility] Last Admin: 03/29/17 09:37 Dose: 5,000 unit Insulin Aspart (Novolog Vial Sliding Scale -) 1 vial SQ ACHS [facility] PRN Reason: Protocol Last Admin: 03/29/17 11:25 Dose: 4 units Insulin Aspart (Novolog Mix 70/30 Vial) 30 units SQ BIDAC [facility] Last Admin: 03/29/17 06:35 Dose: 30 units Meclizine HCl (Antivert -) 25 mg PO TID PRN PRN Reason: VERTIGO Metoprolol Tartrate (Lopressor -) 50 mg PO DAILY [facility] Last Admin: 03/29/17 09:41 Dose: 50 mg Quinapril HCl (Accupril -) 10 mg PO DAILY [facility] Last Admin: 03/29/17 09:39 Dose: 10 mg Ranitidine HCl (Zantac -) 150 mg PO BID [facility] Last Admin: 03/29/17 09:37 Dose: 150 mg - Objective Vital Signs: Vital Signs Temperature 98.0 F 03/29/17 14:00 Pulse Rate 79 03/29/17 05:56 Respiratory Rate 19 03/29/17 05:56 Blood Pressure 138/65 03/29/17 05:56 O2 Sat by Pulse Oximetry (%) 97 03/28/17 21:00 Constitutional: Yes: Well Nourished, No Distress, Calm Cardiovascular: Yes: Regular Rate and Rhythm Respiratory: Yes: Regular Musculoskeletal: Yes: WNL Extremities: Yes: WNL Edema: No Peripheral Pulses WNL: Yes Neurological: Yes: Alert, Oriented Psychiatric: Yes: Alert, Oriented Labs: CBC, BMP 03/28/17 09:10 03/28/17 09:00 Problem List - Problems (1) Hypoglycemia Assessment/Plan: -likely secondary to sulfanylurea -endocrinology on board -Novolog 70-30 and sliding scale A1C at 8.1 Code(s): E16.2 - HYPOGLYCEMIA, UNSPECIFIED (2) Diabetes mellitus, insulin dependent (IDDM), uncontrolled Assessment/Plan: -endocrinology on board -Novolog 70-30 and sliding scale A1C at 8.1 Code(s): E10.65 - TYPE 1 DIABETES MELLITUS WITH HYPERGLYCEMIA Qualifiers: Chronic kidney disease stage: unspecified stage (3) Hallucinations, unspecified Assessment/Plan: -psychiatry consult Code(s): R44.3 - HALLUCINATIONS, UNSPECIFIED Assessment/Plan see problem list -seen by PT, minimal assistance
[2017-03-29] MEDS ORDERED: INSULIN (NOVOLOG) ASPART 100 UNITS/ML 10ML VIAL ONE ×2 (17:02→21:57)
[2017-03-29] MEDS ORDERED: INSULIN (NOVOLOG MIX 70/30) 100 UNITS/ML MDV SQ ONE (17:29)
[2017-03-29] MEDS: ATORVASTATIN CA 40 MG TABLET (FP) PO SCH (21:58)
[2017-03-30] MEDS: ALBUTEROL SO4 2.5/IPRATROPIUM 0.5 INH SOL 3 ML VIAL.NEB. NEB SCH ×5 (00:15→23:43)
[2017-03-30] MEDS: INSULIN (NOVOLOG MIX 70/30) 100 UNITS/ML MDV SQ SCH ×2 (06:21→17:17)
[2017-03-30] MEDS: GLIMEPIRIDE 4 MG TABLET (FP) PO SCH (06:21)
[2017-03-30] MEDS: INSULIN SLIDING SCALE (NOVOLOG) 1 VIAL SQ SCH ×4 (06:22→22:58)
[2017-03-30] MEDS ORDERED: PT OWN MED DRAWER 7, Y5N ONE ×2 (09:39→22:32)
[2017-03-30] MEDS: ASPIRIN COATED 81 MG TABLET.EC PO SCH (09:42)
[2017-03-30] MEDS: METOPROLOL TARTRATE 50 MG TABLET (FP) PO SCH (09:42)
[2017-03-30] MEDS: HEPARIN NA (PORCINE) 5,000 UNITS/ML 1ML VIAL SQ SCH ×2 (09:43→22:58)
[2017-03-30] MEDS: BUDESONIDE/FORMETEROL FUMARATE 80/4.5 mcg INHALER IH SCH ×2 (09:43→22:58)
[2017-03-30] MEDS: FUROSEMIDE 40 MG TABLET (FP) PO SCH (09:43)
[2017-03-30] MEDS: CLOPIDOGREL BISULFATE 75 MG TABLET (FP) PO SCH (09:43)
[2017-03-30] MEDS: RANITIDINE HCL 150 MG TABLET (FP) PO SCH ×2 (09:43→22:58)
[2017-03-30] MEDS: QUINAPRIL HCL 10 MG TABLET (FP) PO SCH (09:44)
--- NOTE | 2017-03-30 09:56 | PN ---
Progress Note (short form) - Note Progress Note: Neurology 76 yo RH m man with a long h/o DM (>15 yrs), HTN, Chol, ASHD, S/P stent, is maintained on atorvastatin, clopidogrel, quinipril, furosamide, insulins, metoprolol and ranitidine. Was found in bed, difficult to arouse with stertorous respirations and Blood glucose of [address] dietz over the weekend and felt to be improved. Said he was better. 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 Doing well this AM, sitting up in chair and interactive. No new neurologic events. Dizzyness better. Meclezine ordered by me for this. Has been having hallucinations and psych has been consulted, awaiting to see patient. Otherwise, neurologically no new events. Active Medications Acetaminophen (Tylenol -) 650 mg PO Q6H PRN PRN Reason: FEVER OR PAIN Albuterol/Ipratropium (Duoneb -) 1 amp NEB Q6HPO [facility] Last Admin: 03/30/17 07:00 Dose: Not Given Aspirin (Ecotrin -) 81 mg PO DAILY [facility] Last Admin: 03/30/17 09:42 Dose: 81 mg Atorvastatin Calcium (Lipitor -) 40 mg PO HS [facility] Last Admin: 03/29/17 21:58 Dose: 40 mg Budesonide/Formoterol Fumarate (Symbicort 80/4.5mcg -) 2 puff IH BID [facility] Last Admin: 03/30/17 09:43 Dose: 2 puff Clopidogrel Bisulfate (Plavix -) 75 mg PO DAILY [facility] Last Admin: 03/30/17 09:43 Dose: 75 mg Furosemide (Lasix -) 40 mg PO DAILY [facility] Last Admin: 03/30/17 09:43 Dose: 40 mg Glimepiride (Amaryl -) 4 mg PO DAILY@0700 [facility] Last Admin: 03/30/17 06:21 Dose: 4 mg Heparin Sodium (Porcine) (Heparin -) 5,000 unit SQ BID [facility] Last Admin: 03/30/17 09:43 Dose: 5,000 unit Insulin Aspart (Novolog Vial Sliding Scale -) 1 vial SQ ACHS [facility] PRN Reason: Protocol Last Admin: 03/30/17 06:22 Dose: Not Given Insulin Aspart (Novolog Mix 70/30 Vial) 30 units SQ BIDAC [facility] Last Admin: 03/30/17 06:21 Dose: 30 units Meclizine HCl (Antivert -) 25 mg PO TID PRN PRN Reason: VERTIGO Metoprolol Tartrate (Lopressor -) 50 mg PO DAILY [facility] Last Admin: 03/30/17 09:42 Dose: 50 mg Quinapril HCl (Accupril -) 10 mg PO DAILY [facility] Last Admin: 03/30/17 09:44 Dose: 10 mg Ranitidine HCl (Zantac -) 150 mg PO BID [facility] Last Admin: 03/30/17 09:43 Dose: 150 mg Vital Signs Period Temp Pulse Resp BP Sys/Rodriguez Pulse Ox Last 24 Hr 97.3 F-98.0 F 70-92 20-21 134-147/67-80 96 Awake, alert, RRR, no murmur Lungs clear, no wheezing Abdomen soft, nontender, distended Skin without rashes Pulses intact NEURO: Awake, alert, Ox 3. Fluent speech CN II-XII: Normal Motor: No drift or tremor. Normal strength. Areflexic in the legs. Toes downgoing. Coord: No FTN dystaxia Sensory: Decreased vib both feet. Romberg +/- CBCD WBC 8.4 K/mm3 (4.0-10.0) D 03/28/17 09:10 RBC 4.67 M/mm3 (4.00-5.60) 03/28/17 09:10 Hgb 13.7 GM/dL (11.7-16.9) 03/28/17 09:10 Hct 41.8 % (35.4-49) 03/28/17 09:10 MCV 89.5 fl (80-96) 03/28/17 09:10 MCHC 32.9 g/dl (32.0-35.9) 03/28/17 09:10 RDW 14.1 % (11.9-15.9) 03/28/17 09:10 Plt Count 161 K/MM3 (134-434) 03/28/17 09:10 MPV 10.2 fl (7.5-11.1) 03/28/17 09:10 CMP Sodium 136 mmol/L (136-145) 03/28/17 09:00 Potassium 4.1 mmol/L (3.5-5.1) 03/28/17 09:00 Chloride 99 mmol/L (98-107) 03/28/17 09:00 Carbon Dioxide 31 mmol/L (21-32) 03/28/17 09:00 Anion Gap 6 (8-16) L 03/28/17 09:00 BUN 25 mg/dL (7-18) H D 03/28/17 09:00 Creatinine 0.9 mg/dL (0.7-1.3) 03/28/17 09:00 Creat Clearance w eGFR > 60 (>60) 03/28/17 09:00 Calcium 8.4 mg/dL (8.5-10.1) L 03/28/17 09:00 Total Bilirubin 0.5 mg/dL (0.2-1.0) 03/28/17 09:00 AST 14 U/L (15-37) L 03/28/17 09:00 ALT 22 U/L (12-78) D 03/28/17 09:00 Alkaline Phosphatase 72 U/L (45-117) 03/28/17 09:00 Total Protein 6.7 g/dl (6.4-8.2) 03/28/17 09:00 Albumin 3.3 g/dl (3.4-5.0) L 03/28/17 09:00 Imaging MRI of brain (reviewed): moderate atdrophy, moderate ventriculomegally (ex vacuo ) with scattered microvascular changes including a right paramedian pontine lacunar infarction. Plan: 76 yo RH m man with a long h/o DM (>15 yrs), HTN, Chol, ASHD, S/P stent, is maintained on atorvastatin, clopidogrel, quinipril, furosamide, insulins, metoprolol and ranitidine. Was found in bed, difficult to arouse with stertorous respirations and Blood glucose of [address] dietz over the weekend and felt to be improved. Said he was better. 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 Spoke to nurse, has poor diabetic control and getting further glycemic optimization. Likely combination of altered mental status due to hypoglycemia. Can continue plavix for CVA prevention, no new infarct noted. Monitor BP, maintain < 140/90. Continue insulin, glimeperide, maintain euglycemic range. Meclezine ordered for dizzyness. No further neuro rec'd at this time. Awaiting psych consult regarding hallucinations
--- NOTE | 2017-03-30 11:03 | PN ---
Progress Note (short form) - Note Progress Note: Symptomatic hypoglycemia yesterday. Still with some dizziness. No CP or SOB. Intake & Output 03/27/17 03/28/17 03/29/17 03/30/17 23:59 23:59 23:59 23:59 Intake Total 1050 1000 1200 Balance 1050 1000 1200 Last Vital Signs Temp Pulse Resp BP Pulse Ox 98.0 F 92 H 20 147/80 96 03/30/17 05:51 03/30/17 05:51 03/30/17 05:51 03/30/17 05:51 03/29/17 22:00 Active Medications Acetaminophen (Tylenol -) 650 mg PO Q6H PRN PRN Reason: FEVER OR PAIN Albuterol/Ipratropium (Duoneb -) 1 amp NEB Q6HPO [facility] Last Admin: 03/30/17 07:00 Dose: Not Given Aspirin (Ecotrin -) 81 mg PO DAILY [facility] Last Admin: 03/30/17 09:42 Dose: 81 mg Atorvastatin Calcium (Lipitor -) 40 mg PO HS [facility] Last Admin: 03/29/17 21:58 Dose: 40 mg Budesonide/Formoterol Fumarate (Symbicort 80/4.5mcg -) 2 puff IH BID [facility] Last Admin: 03/30/17 09:43 Dose: 2 puff Clopidogrel Bisulfate (Plavix -) 75 mg PO DAILY [facility] Last Admin: 03/30/17 09:43 Dose: 75 mg Furosemide (Lasix -) 40 mg PO DAILY [facility] Last Admin: 03/30/17 09:43 Dose: 40 mg Glimepiride (Amaryl -) 4 mg PO DAILY@0700 [facility] Last Admin: 03/30/17 06:21 Dose: 4 mg Heparin Sodium (Porcine) (Heparin -) 5,000 unit SQ BID [facility] Last Admin: 03/30/17 09:43 Dose: 5,000 unit Insulin Aspart (Novolog Vial Sliding Scale -) 1 vial SQ ACHS [facility] PRN Reason: Protocol Last Admin: 03/30/17 06:22 Dose: Not Given Insulin Aspart (Novolog Mix 70/30 Vial) 30 units SQ BIDAC [facility] Last Admin: 03/30/17 06:21 Dose: 30 units Meclizine HCl (Antivert -) 25 mg PO TID PRN PRN Reason: VERTIGO Metoprolol Tartrate (Lopressor -) 50 mg PO DAILY [facility] Last Admin: 03/30/17 09:42 Dose: 50 mg Quinapril HCl (Accupril -) 10 mg PO DAILY [facility] Last Admin: 03/30/17 09:44 Dose: 10 mg Ranitidine HCl (Zantac -) 150 mg PO BID [facility] Last Admin: 03/30/17 09:43 Dose: 150 mg Constitutional: Yes: NAD Cardiovascular: Yes: Regular Rate and Rhythm Respiratory: Yes: Few scattered rhonchi Gastrointestinal: Yes: WNL Musculoskeletal: Yes: WNL Extremities: Yes: WNL Edema: No Peripheral Pulses WNL: Yes Neurological: Yes: Alert, Oriented Psychiatric: Yes: Alert, Oriented Labs: Laboratory Results - last 24 hr 03/29/17 03/29/17 03/29/17 11:22 17:19 21:55 POC Glucometer 272 370 282 03/30/17 06:19 POC Glucometer 160 Problem List - Problems (1) Acute hypercapnic respiratory failure Code(s): J96.02 - ACUTE RESPIRATORY FAILURE WITH HYPERCAPNIA (2) Hypoglycemia Code(s): E16.2 - HYPOGLYCEMIA, UNSPECIFIED (3) COPD exacerbation Code(s): J44.1 - CHRONIC OBSTRUCTIVE PULMONARY DISEASE W (ACUTE) EXACERBATION (4) Diabetes mellitus, insulin dependent (IDDM), uncontrolled Code(s): E10.65 - TYPE 1 DIABETES MELLITUS WITH HYPERGLYCEMIA Qualifiers: Chronic kidney disease stage: unspecified stage IMP ACUTE HYPERCAPNEIC RESPIRATORY FAILURE HYPOGLYCEMIA COPD ASHD OBESITY LIKELY OSAS PLAN INHALED BRONCHODILATORS O2 PRN GLYCEMIC CONTROL PER ENDOCRINE OUTPATIENT SLEEP WORKUP CAIN/[facility] WORKUP ONGOING DR MCCABE
[2017-03-30] MEDS ORDERED: INSULIN (NOVOLOG) ASPART 100 UNITS/ML 10ML VIAL ONE ×2 (11:23→22:32)
--- NOTE | 2017-03-30 14:47 | PN ---
Progress Note, Physician Chief Complaint: patient sitting in chair no distress - Current Medication List Current Medications: Active Medications Acetaminophen (Tylenol -) 650 mg PO Q6H PRN PRN Reason: FEVER OR PAIN Albuterol/Ipratropium (Duoneb -) 1 amp NEB Q6HPO [facility] Last Admin: 03/30/17 11:05 Dose: 1 amp Aspirin (Ecotrin -) 81 mg PO DAILY [facility] Last Admin: 03/30/17 09:42 Dose: 81 mg Atorvastatin Calcium (Lipitor -) 40 mg PO HS [facility] Last Admin: 03/29/17 21:58 Dose: 40 mg Budesonide/Formoterol Fumarate (Symbicort 80/4.5mcg -) 2 puff IH BID [facility] Last Admin: 03/30/17 09:43 Dose: 2 puff Clopidogrel Bisulfate (Plavix -) 75 mg PO DAILY [facility] Last Admin: 03/30/17 09:43 Dose: 75 mg Furosemide (Lasix -) 40 mg PO DAILY [facility] Last Admin: 03/30/17 09:43 Dose: 40 mg Glimepiride (Amaryl -) 4 mg PO DAILY@0700 [facility] Last Admin: 03/30/17 06:21 Dose: 4 mg Heparin Sodium (Porcine) (Heparin -) 5,000 unit SQ BID [facility] Last Admin: 03/30/17 09:43 Dose: 5,000 unit Insulin Aspart (Novolog Vial Sliding Scale -) 1 vial SQ ACHS [facility] PRN Reason: Protocol Last Admin: 03/30/17 11:28 Dose: 6 units Insulin Aspart (Novolog Mix 70/30 Vial) 30 units SQ BIDAC [facility] Last Admin: 03/30/17 06:21 Dose: 30 units Meclizine HCl (Antivert -) 25 mg PO TID PRN PRN Reason: VERTIGO Metoprolol Tartrate (Lopressor -) 50 mg PO DAILY [facility] Last Admin: 03/30/17 09:42 Dose: 50 mg Quinapril HCl (Accupril -) 10 mg PO DAILY [facility] Last Admin: 03/30/17 09:44 Dose: 10 mg Ranitidine HCl (Zantac -) 150 mg PO BID [facility] Last Admin: 03/30/17 09:43 Dose: 150 mg - Objective Vital Signs: Vital Signs Temperature 97.6 F 03/30/17 14:33 Pulse Rate 81 03/30/17 14:33 Respiratory Rate 20 03/30/17 14:33 Blood Pressure 156/91 03/30/17 14:33 O2 Sat by Pulse Oximetry (%) 96 03/29/17 22:00 Constitutional: Yes: Calm Neck: Yes: Trachea Midline Cardiovascular: Yes: Regular Rate and Rhythm, S1, S2 Respiratory: Yes: CTA Bilaterally Gastrointestinal: Yes: Normal Bowel Sounds, Soft Edema: No Neurological: Yes: Alert, Oriented Labs: CBC, BMP 03/28/17 09:10 03/28/17 09:00 Problem List - Problems (1) Hallucinations, unspecified Assessment/Plan: awaiting psych evaluation Code(s): R44.3 - HALLUCINATIONS, UNSPECIFIED (2) Vertigo Assessment/Plan: meclizine MRI brain noted neurology on board dvt ppx Code(s): R42 - DIZZINESS AND GIDDINESS (3) Acute hypercapnic respiratory failure Assessment/Plan: sleep study as outpatient Code(s): J96.02 - ACUTE RESPIRATORY FAILURE WITH HYPERCAPNIA (4) Diabetes Assessment/Plan: appreicate endocrine evaluation bgm noted inc novolog to 33 units BIDAC meals Code(s): E11.9 - TYPE 2 DIABETES MELLITUS WITHOUT COMPLICATIONS Qualifiers: Diabetes mellitus type: type 2
[2017-03-30] MEDS ORDERED: QUINAPRIL HCL 10 MG TABLET (FP) PO SCH (14:51)
--- NOTE | 2017-03-30 15:30 | PN ---
Progress Note (short form) - Note Progress Note: Mr. Sorenson was seen at his bedside on 03/29/17 in the pm. History reviewed labs and MRI reviewed Nursing input received from floor RN Medical notes reviewed. Patient was Hard of hearing. He was sitting in the chair having just completed his dinner. He could not recall the circumstances surrounding his hospitalizations nor did he volunteer any other information. His verbal responses were slow and did not make much sense. It was hard to conduct a full interview with him due to his distractibility and short attention span. MS He was talking to himself when approached. When asked, he says, ' I always talk to myself!" Awake, oriented to himself and place, " [facility]!" Speech was intact but slow delayed responses. Mood was calm. No evidence of visual or auditory hallucination evident during this time. A?P Patient has DM and had maybe a prolonged period of hypoglycemia with sugar below 40 when he was brought to ER. Also, he has microvascular /small infarcts as per MRI . Hallucinations can be related to Vascular Dementia. He may also have infarts in his temporal lobe- .
[2017-03-30] MEDS: ATORVASTATIN CA 40 MG TABLET (FP) PO SCH (22:58)
[2017-03-31] MEDS: ALBUTEROL SO4 2.5/IPRATROPIUM 0.5 INH SOL 3 ML VIAL.NEB. NEB SCH ×3 (05:54→17:42)
[2017-03-31] MEDS: INSULIN SLIDING SCALE (NOVOLOG) 1 VIAL SQ SCH ×3 (06:14→16:51)
[2017-03-31] MEDS: GLIMEPIRIDE 4 MG TABLET (FP) PO SCH (06:23)
[2017-03-31] MEDS: INSULIN (NOVOLOG MIX 70/30) 100 UNITS/ML MDV SQ SCH (06:23)
--- NOTE | 2017-03-31 09:11 | PN ---
Progress Note (short form) - Note Progress Note: Neurology 76 yo RH m man with a long h/o DM (>15 yrs), HTN, Chol, ASHD, S/P stent, is maintained on atorvastatin, clopidogrel, quinipril, furosamide, insulins, metoprolol and ranitidine. Was found in bed, difficult to arouse with stertorous respirations and Blood glucose of [address] dietz over the weekend and felt to be improved. Said he was better. 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 Doing well this AM, sitting up in chair and interactive. No new neurologic events. Dizzyness better. Meclezine ordered by me for this. Has been having hallucinations and psych has been consulted, note reviewed and mentioned no hallucinations. Possible dementia related, unclear baseline to me. Would not expect acute changes being dementia related and typically would not present with hallucinations. Question regarding infarcts. MRI showed prior lacunes in ayush, not cortically based which what would be expected for multi- infarct/vascular dementia picture. Pontine/brainstem infarcts would not present with this picture. Active Medications Acetaminophen (Tylenol -) 650 mg PO Q6H PRN PRN Reason: FEVER OR PAIN Albuterol/Ipratropium (Duoneb -) 1 amp NEB Q6HPO [facility] Last Admin: 03/31/17 05:54 Dose: 1 amp Aspirin (Ecotrin -) 81 mg PO DAILY [facility] Last Admin: 03/30/17 09:42 Dose: 81 mg Atorvastatin Calcium (Lipitor -) 40 mg PO HS [facility] Last Admin: 03/30/17 22:58 Dose: 40 mg Budesonide/Formoterol Fumarate (Symbicort 80/4.5mcg -) 2 puff IH BID [facility] Last Admin: 03/30/17 22:58 Dose: 2 puff Clopidogrel Bisulfate (Plavix -) 75 mg PO DAILY [facility] Last Admin: 03/30/17 09:43 Dose: 75 mg Furosemide (Lasix -) 40 mg PO DAILY [facility] Last Admin: 03/30/17 09:43 Dose: 40 mg Glimepiride (Amaryl -) 4 mg PO DAILY@0700 [facility] Last Admin: 03/31/17 06:23 Dose: 4 mg Heparin Sodium (Porcine) (Heparin -) 5,000 unit SQ BID [facility] Last Admin: 03/30/17 22:58 Dose: 5,000 unit Insulin Aspart (Novolog Vial Sliding Scale -) 1 vial SQ ACHS [facility] PRN Reason: Protocol Last Admin: 03/31/17 06:14 Dose: Not Given Insulin Aspart (Novolog Mix 70/30 Vial) 33 units SQ BIDAC [facility] Last Admin: 03/31/17 06:23 Dose: 33 units Meclizine HCl (Antivert -) 25 mg PO TID PRN PRN Reason: VERTIGO Metoprolol Tartrate (Lopressor -) 50 mg PO DAILY [facility] Last Admin: 03/30/17 09:42 Dose: 50 mg Quinapril HCl (Accupril -) 20 mg PO DAILY [facility] Ranitidine HCl (Zantac -) 150 mg PO BID [facility] Last Admin: 03/30/17 22:58 Dose: 150 mg Vital Signs Temperature 97.8 F 03/31/17 05:42 Pulse Rate 88 03/31/17 05:42 Respiratory Rate 20 03/31/17 05:42 Blood Pressure 150/90 03/31/17 05:42 O2 Sat by Pulse Oximetry (%) 93 L 03/30/17 21:00 Awake, alert, RRR, no murmur Lungs clear, no wheezing Abdomen soft, nontender, distended Skin without rashes Pulses intact NEURO: Awake, alert, Ox 3. Fluent speech CN II-XII: Normal Motor: No drift or tremor. Normal strength. Areflexic in the legs. Toes downgoing. Coord: No FTN dystaxia Sensory: Decreased vib both feet. Romberg +/- CBCD WBC 8.4 K/mm3 (4.0-10.0) D 03/28/17 09:10 RBC 4.67 M/mm3 (4.00-5.60) 03/28/17 09:10 Hgb 13.7 GM/dL (11.7-16.9) 03/28/17 09:10 Hct 41.8 % (35.4-49) 03/28/17 09:10 MCV 89.5 fl (80-96) 03/28/17 09:10 MCHC 32.9 g/dl (32.0-35.9) 03/28/17 09:10 RDW 14.1 % (11.9-15.9) 03/28/17 09:10 Plt Count 161 K/MM3 (134-434) 03/28/17 09:10 MPV 10.2 fl (7.5-11.1) 03/28/17 09:10 CMP Sodium 136 mmol/L (136-145) 03/28/17 09:00 Potassium 4.1 mmol/L (3.5-5.1) 03/28/17 09:00 Chloride 99 mmol/L (98-107) 03/28/17 09:00 Carbon Dioxide 31 mmol/L (21-32) 03/28/17 09:00 Anion Gap 6 (8-16) L 03/28/17 09:00 BUN 25 mg/dL (7-18) H D 03/28/17 09:00 Creatinine 0.9 mg/dL (0.7-1.3) 03/28/17 09:00 Creat Clearance w eGFR > 60 (>60) 03/28/17 09:00 Calcium 8.4 mg/dL (8.5-10.1) L 03/28/17 09:00 Total Bilirubin 0.5 mg/dL (0.2-1.0) 03/28/17 09:00 AST 14 U/L (15-37) L 03/28/17 09:00 ALT 22 U/L (12-78) D 03/28/17 09:00 Alkaline Phosphatase 72 U/L (45-117) 03/28/17 09:00 Total Protein 6.7 g/dl (6.4-8.2) 03/28/17 09:00 Albumin 3.3 g/dl (3.4-5.0) L 03/28/17 09:00 Imaging MRI of brain (reviewed): moderate atdrophy, moderate ventriculomegally (ex vacuo ) with scattered microvascular changes including a right paramedian pontine lacunar infarction. Plan: 76 yo RH m man with a long h/o DM (>15 yrs), HTN, Chol, ASHD, S/P stent, is maintained on atorvastatin, clopidogrel, quinipril, furosamide, insulins, metoprolol and ranitidine. Was found in bed, difficult to arouse with stertorous respirations and Blood glucose of [address] dietz over the weekend and felt to be improved. Said he was better. 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 Spoke to nurse, has poor diabetic control and getting further glycemic optimization. Likely combination of altered mental status due to hypoglycemia. Can continue plavix for CVA prevention, no new infarct noted. Monitor BP, maintain < 140/90. Continue insulin, glimeperide, maintain euglycemic range. Meclezine ordered for dizzyness. Psych note reviewed. Considered dementia picture and vascular dementia possibilities as described above in HPI. Case does not fit that pattern. Medical mgmt per primary, monitor for hallucinations and consider further medications if indicated. No further neuro rec'd at this time.
[2017-03-31 09:15] LABS: MCH 30.5 pg (25.7-33.7); MEAN CELL VOLUME 89.7 fl (80-96); MEAN PLT VOLUME 10.4 fl (7.5-11.1); NEUTROPHILS 62.6 % (42.8-82.8); PLATELET COUNT 169 K/MM3 (134-434); RDW 14.1 % (11.9-15.9); WHITE BLOOD COUNT 7.1 K/mm3 (4.0-10.0)
[2017-03-31 09:37] LABS: ANION GAP 9 (8-16); CO2 30 mmol/L (21-32); CREATININE 0.9 mg/dL (0.7-1.3); GLUCOSE,RANDOM 143 mg/dL (74-106)
[2017-03-31] MEDS ORDERED: PT OWN MED DRAWER 7, Y5N ONE (10:28)
[2017-03-31] MEDS: RANITIDINE HCL 150 MG TABLET (FP) PO SCH (10:35)
[2017-03-31] MEDS: METOPROLOL TARTRATE 50 MG TABLET (FP) PO SCH (10:35)
[2017-03-31] MEDS: CLOPIDOGREL BISULFATE 75 MG TABLET (FP) PO SCH (10:35)
[2017-03-31] MEDS: FUROSEMIDE 40 MG TABLET (FP) PO SCH (10:35)
[2017-03-31] MEDS: ASPIRIN COATED 81 MG TABLET.EC PO SCH (10:35)
[2017-03-31] MEDS: HEPARIN NA (PORCINE) 5,000 UNITS/ML 1ML VIAL SQ SCH (10:36)
[2017-03-31] MEDS: BUDESONIDE/FORMETEROL FUMARATE 80/4.5 mcg INHALER IH SCH (10:36)
[2017-03-31] MEDS ORDERED: INSULIN (NOVOLOG) ASPART 100 UNITS/ML 10ML VIAL ONE (11:39)
--- NOTE | 2017-03-31 12:52 | PN ---
Progress Note, Physician Chief Complaint: patient bgm better controlled today, seen by psych and neurology medications increased - Current Medication List Current Medications: Active Medications Acetaminophen (Tylenol -) 650 mg PO Q6H PRN PRN Reason: FEVER OR PAIN Albuterol/Ipratropium (Duoneb -) 1 amp NEB Q6HPO [facility] Last Admin: 03/31/17 11:10 Dose: 1 amp Aspirin (Ecotrin -) 81 mg PO DAILY [facility] Last Admin: 03/31/17 10:35 Dose: 81 mg Atorvastatin Calcium (Lipitor -) 40 mg PO HS [facility] Last Admin: 03/30/17 22:58 Dose: 40 mg Budesonide/Formoterol Fumarate (Symbicort 80/4.5mcg -) 2 puff IH BID [facility] Last Admin: 03/31/17 10:36 Dose: 2 puff Clopidogrel Bisulfate (Plavix -) 75 mg PO DAILY [facility] Last Admin: 03/31/17 10:35 Dose: 75 mg Furosemide (Lasix -) 40 mg PO DAILY [facility] Last Admin: 03/31/17 10:35 Dose: 40 mg Glimepiride (Amaryl -) 4 mg PO DAILY@0700 [facility] Last Admin: 03/31/17 06:23 Dose: 4 mg Heparin Sodium (Porcine) (Heparin -) 5,000 unit SQ BID [facility] Last Admin: 03/31/17 10:36 Dose: 5,000 unit Insulin Aspart (Novolog Vial Sliding Scale -) 1 vial SQ ACHS [facility] PRN Reason: Protocol Last Admin: 03/31/17 11:55 Dose: Not Given Insulin Aspart (Novolog Mix 70/30 Vial) 33 units SQ BIDAC [facility] Last Admin: 03/31/17 06:23 Dose: 33 units Meclizine HCl (Antivert -) 25 mg PO TID PRN PRN Reason: VERTIGO Metoprolol Tartrate (Lopressor -) 50 mg PO DAILY [facility] Last Admin: 03/31/17 10:35 Dose: 50 mg Quinapril HCl (Accupril -) 20 mg PO DAILY [facility] Last Admin: 03/31/17 10:35 Dose: 20 mg Ranitidine HCl (Zantac -) 150 mg PO BID [facility] Last Admin: 03/31/17 10:35 Dose: 150 mg Senna (Senna -) 2 tab PO [facility] [place] [facility] Objective Vital Signs: Vital Signs Temperature 97.8 F 03/31/17 05:42 Pulse Rate 88 03/31/17 05:42 Respiratory Rate 20 03/31/17 05:42 Blood Pressure 150/90 03/31/17 05:42 O2 Sat by Pulse Oximetry (%) 93 L 03/30/17 21:00 Constitutional: Yes: Calm Cardiovascular: Yes: Regular Rate and Rhythm, S1, S2 Respiratory: Yes: CTA Bilaterally Gastrointestinal: Yes: Normal Bowel Sounds, Soft Edema: No Neurological: Yes: Alert, Oriented (to name) Labs: CBC, BMP 03/31/17 08:00 03/31/17 08:00 Problem List - Problems (1) Hallucinations, unspecified Assessment/Plan: psych evaluation noted Code(s): R44.3 - HALLUCINATIONS, UNSPECIFIED (2) Vertigo Assessment/Plan: meclizine prn , no more dizziness MRI brain noted neurology on board dvt ppx Code(s): R42 - DIZZINESS AND GIDDINESS (3) Acute hypercapnic respiratory failure Assessment/Plan: sleep study already done as outpatient has BIPAP at home per daughter Code(s): J96.02 - ACUTE RESPIRATORY FAILURE WITH HYPERCAPNIA (4) Diabetes Assessment/Plan: appreicate endocrine evaluation bgm noted inc novolog to 33 units BIDAC meals Code(s): E11.9 - TYPE 2 DIABETES MELLITUS WITHOUT COMPLICATIONS Qualifiers: Diabetes mellitus type: type 2 (5) HTN (hypertension) Assessment/Plan: continue metoprolol and accupril Code(s): I10 - ESSENTIAL (PRIMARY) HYPERTENSION
[2017-03-31] MEDS ORDERED: INSULIN (NOVOLOG MIX 70/30) 100 UNITS/ML MDV SQ SCH (12:56)
--- NOTE | 2017-03-31 13:01 | DS ---
Physical Examination Vital Signs: Vital Signs Temperature 97.8 F 03/31/17 05:42 Pulse Rate 88 03/31/17 05:42 Respiratory Rate 20 03/31/17 05:42 Blood Pressure 150/90 03/31/17 05:42 O2 Sat by Pulse Oximetry (%) 93 L 03/30/17 21:00 Constitutional: Yes: Calm Neck: Yes: Trachea Midline Cardiovascular: Yes: Regular Rate and Rhythm, S1, S2 Respiratory: Yes: CTA Bilaterally Gastrointestinal: Yes: Normal Bowel Sounds, Soft Neurological: Yes: Alert, Oriented Labs: CBC, BMP 03/31/17 08:00 03/31/17 08:00 Discharge Summary Reason For Visit: HYPOGLYCEMIA Current Active Problems Acute hypercapnic respiratory failure (Acute) Diabetes (Acute) HTN (hypertension) (Acute) Hallucinations, unspecified (Acute) Hypoglycemia (Acute) Vertigo (Acute) Hospital Course: Mr. Sorenson is a 76 yo male with pmh of DM, 1 cardiac stent, HTN, and hypercholesterolemia BIBA after he was noted by family to have snoring respirations this morning. attempted to wake him up but was unable to. Family took his blood sugar at home and noted it was 34. EMS was called and administered oral glucose - blood sugar was noted to be approximately 200 following this and patient was brought to the emergency room. Patient currently responding appropriately and at baseline per family - says that he feels fine and has no complaints. Patient takes insulin and sulfonylureas for his diabetes. History Source: Patient, Medical Record Limitations to Obtaining History: Physical Impairment seen by endocrine neurology and psych MRI noted old chronic changes- moderate atrophy and mild to moderate chronic microvascular changes meclizine prn for dizziness on novolog 70/30 33 units bidac meals plavix for cva prevention HTN meds adjusted Condition: Improved - Instructions Diet, Activity, Other Instructions: FU with Dr melendrez in one week for sugar control Disposition: VNS/HOME HEALTH CARE - Home Medications Comprehensive Discharge Medication List: Ambulatory Orders Aspirin [ASA -] 81 mg PO DAILY 03/26/13 Atorvastatin Ca [Lipitor] 40 mg PO HS 03/26/13 Clopidogrel Bisulfate [Plavix -] 75 mg PO DAILY 03/26/13 Quinapril HCl [Accupril -] 20 mg PO DAILY 03/26/13 Cholecalciferol (Vitamin D3) [Vitamin D3 -] 1,000 unit PO DAILY 12/11/14 Cyanocobalamin [Vitamin B12 -] 100 mcg PO DAILY 12/11/14 Albuterol 2.5/Ipratropium 0.5 [Duoneb -] 1 amp NEB Q4H PRN #30 amp 12/15/14 Budesonide/Formeterol Fumarate [SYMBICORT 80/4.5mcg -] 2 puff IH BID #1 inhaler 12/15/14 Furosemide [Lasix -] 40 mg PO DAILY #30 tablet 12/15/14 Glimepiride [Amaryl -] 4 mg PO DAILY@0700 #30 tablet 12/15/14 Insulin (Novolog 70/30) [Novolog Mix 70/30 Flexpen -] 10 units SQ DAILY@1100 #1 pen 12/15/14 Insulin (Novolog 70/30) [Novolog Mix 70/30 Flexpen -] 30 units SQ ACBK #1 pen Insulin (Novolog 70/30) [Novolog Mix 70/30 Flexpen -] 30 units SQ ACDIN #1 pen 12/15/14 Metoprolol Tartrate [Lopressor -] 50 mg PO DAILY #30 tablet 12/15/14 Prednisone [Deltasone -] 40 mg PO DAILY #14 tablet 12/15/14 Quinapril HCl [Accupril -] 20 mg PO DAILY #30 tablet 12/15/14 Ranitidine HCl [Zantac] 150 mg PO DAILY #14 tablet 12/15/14
--- NOTE | 2017-03-31 13:06 | PN ---
Progress Note (short form) - Note Progress Note: spoke to daughter she will pick him up after work today Problem List - Problems (1) Hallucinations, unspecified Code(s): R44.3 - HALLUCINATIONS, UNSPECIFIED (2) Vertigo Code(s): R42 - DIZZINESS AND GIDDINESS (3) Acute hypercapnic respiratory failure Code(s): J96.02 - ACUTE RESPIRATORY FAILURE WITH HYPERCAPNIA (4) Diabetes Code(s): E11.9 - TYPE 2 DIABETES MELLITUS WITHOUT COMPLICATIONS Qualifiers: Diabetes mellitus type: type 2 (5) HTN (hypertension) Code(s): I10 - ESSENTIAL (PRIMARY) HYPERTENSION
--- NOTE | 2017-03-31 13:14 | PN ---
Progress Note (short form) - Note Progress Note: PULMONARY VSS/AFEBRILE ANICTERIC CLEAR S1S2 BS+ NO EDEMA LABS/MEDS/NOTES REVIEWED IMP ACUTE HYPERCAPNEIC RESPIRATORY FAILURE HYPOGLYCEMIA COPD/ ASHD/PCI OBESITY LIKELY OSAS PLAN INHALED BRONCHODILATORS O2 PRN GLYCEMIC CONTROL Robert HAMEED MD
[2017-03-31 14:23] VITALS: BP 140/78; PULSE 85; TEMP 97.8
[2017-03-31] MEDS ORDERED: SENNOSIDES 8.6MG TABLET (FP) PO SCH (22:00)
== END 2017-03-31 19:39 | disposition home health service (06) | DRG 637 ==
LOC: JER 06:15 → JERBED 09:43 → J6S 11:13 → OBSVTOIN 13:33
PROVIDERS: ADMIT Family Medicine; ATTEND Family Medicine
DX: E11.65 Type 2 diabetes mellitus with hyperglycemia (principal); J96.02 Acute respiratory failure with hypercapnia; G93.41 Metabolic encephalopathy; J44.1 Chronic obstructive pulmonary disease with (acute) exacerbation; R44.3 Hallucinations, unspecified; I25.10 Atherosclerotic heart disease of native coronary artery without angina pectoris; E78.5 Hyperlipidemia, unspecified; K59.09 Other constipation; I12.9 Hypertensive chronic kidney disease with stage 1 through stage 4 chronic kidney disease, or unspecified chronic kidney disease; E11.22 Type 2 diabetes mellitus with diabetic chronic kidney disease; N18.9 Chronic kidney disease, unspecified; R06.09 Other forms of dyspnea; E66.8 Other obesity; Z68.32 Body mass index [BMI] 32.0-32.9, adult; G47.33 Obstructive sleep apnea (adult) (pediatric); E11.42 Type 2 diabetes mellitus with diabetic polyneuropathy; R42 Dizziness and giddiness; Z95.5 Presence of coronary angioplasty implant and graft
CPT/HCPCS: 36415; 36600; 70551-TC; 71010-TC; 80048; 80053; 80061; 81003; 81015; 82550; 82803; 83036; 83721; 84484; 85025; 85027; 93005; 93010; 93306-TC; 94640; 97116-GP; 97161-GP; 99285-25; G0378; J1644